=== PATIENT | female | born 1965 | race Caucasian/White ===

== ENCOUNTER 2017-07-31 10:15 | Outpatient (CLI) | payer BC, SELFPAY | END 2017-07-31 10:35 | disposition home or self-care (01) | PROVIDERS: Family Provider Nurse Practitioner Family; PCP Nurse Practitioner Family; Visit Provider Internal Medicine | DX: Z45.2 Encounter for adjustment and management of vascular access device (principal) | CPT/HCPCS: 96523; J1642 ==

== ENCOUNTER 2017-09-01 09:09 | Outpatient (CLI) | payer BC, SELFPAY ==
[2017-09-01 09:15] VITALS: BP 122/74; PULSE 66; RESP 20; TEMP 36.4; O2SAT 97
[2017-09-01 09:20] VITALS: BP 122/78; PULSE 68; RESP 20; TEMP 36.4; O2SAT 96
== END 2017-09-01 09:30 | disposition home or self-care (01) ==
LOC: INF 09:09
PROVIDERS: Family Provider Nurse Practitioner Family; PCP Nurse Practitioner Family; Visit Provider Internal Medicine
DX: Z45.2 Encounter for adjustment and management of vascular access device (principal)
CPT/HCPCS: 96523; J1642

== ENCOUNTER 2017-10-06 08:33 | Outpatient (CLI) | payer BC, SELFPAY | END 2017-10-06 08:51 | disposition home or self-care (01) | LOC: INF 08:33 | PROVIDERS: Family Provider Nurse Practitioner Family; PCP Nurse Practitioner Family; Visit Provider Internal Medicine | DX: Z45.2 Encounter for adjustment and management of vascular access device (principal) | CPT/HCPCS: 96523; J1642 ==

== ENCOUNTER 2017-11-13 08:31 | Outpatient (CLI) | payer BC, SELFPAY ==
[2017-11-13 08:10] VITALS: BP 120/74; BP 122/70; PULSE 66; PULSE 68; RESP 20; TEMP 36.9; O2SAT 96
[2017-11-13 08:17] VITALS: BMI 26.6
--- NOTE | 2017-11-13 08:37 | CT_ITS ---
CT abdomen pelvis w con Ordering Physician: Krystin Myers Patient Age: 52 years: Female HISTORY: Colon cancer. Six-month follow-up. TECHNIQUE: Helical CT scanning performed the chest and subsequently abdomen following 75 cc Isovue-370 and enteric contrast as well. Axial sagittal and coronal reconstructions performed on CT workstation. 10 minute delayed imaging performed the abdomen also performed All CT scans at this facility used one or more dose reduction techniques , viz: automatic exposure control, ma/Kv adjustment per patient's size, (including targeted exam where dose matched to the indication; i.e. head); or iterative reconstruction technique COMPARISON :05/14/2017 CT abdomen pelvis & 02/11/2017 FINDINGS Lung bases are clear with no active disease. Heart normal size. Liver. No focal lesions. No metastatic disease evident. Spleen normal size. The gallbladder unremarkable no calcified stones. Moderate caliber common duct. Pancreas unremarkable. Adrenals unremarkable. Kidneys. No urinary tract calculi. Nor obstruction. Left kidney.: Stable Stable small cyst lower pole 4 mm size fluid density benign appearance. Small less than 1 cm cyst posterior mid left kidney Right kidney. Small. Ureters unremarkable. Pelvis. Bladder unremarkable. Hysterectomy. No adnexal masses. GI TRACT appears stable.Reported Left hemicolectomy but with minimal postsurgical changes evident. Currently note Upper normal wall thickness is seen at the junction of proximal sigmoid colon, most likely reflects an area of contraction. This appears normal on previous CT when it was better distended. Terminal ileum, cecum and region of appendix unremarkable. Small bowel unremarkable. No retroperitoneal nor mesenteric nor pelvic nor inguinal adenopathy. Osseous. No osseous lesions evident. Extrarenal pelvis on the right similar to previous studies IMPRESSION: No evidence of metastatic disease. Status post left colectomy of the proximal descending colon reported. Minimal postsurgical changes evident On today's study there is upper normal wall thickness at the proximal sigmoid colon but this most likely reflects an area of contraction. Generous stool distal to this at the rectum
--- NOTE | 2017-11-13 08:37 | CT_ITS ---
CT chest w con Ordering Physician: Krystin Myers Patient Age: 52 years: Female HISTORY: ITS.REASON: COLON CA, PULMONARY NODULES Colon cancer with 6 month follow-up TECHNIQUE: Helical CT scanning performed the chest and subsequently abdomen following 75 cc Isovue-370 and enteric contrast as well. Axial sagittal and coronal reconstructions performed on CT workstation. All CT scans at this facility used one or more dose reduction techniques , viz: automatic exposure control, ma/Kv adjustment per patient's size, (including targeted exam where dose matched to the indication; i.e. head); or iterative reconstruction technique COMPARISON :Previous CT chest 05/14/2017 FINDINGS: There is a right subclavian Mediport catheter present. Noteazygos fissure-a normal variant. Stable flat aortopulmonic lymph node is again notedmeasuring 16 x 11 mm not significant changed. No other enlarged mediastinal or hilar nodes are evident. No obvious thyroid nodules however the superior aspectof the upper poles are not completely imaged There are scattered calcified granulomas, most evident at the right lung. The largest at the RUL measuring 11 mm AP and is densely calcified. Another is seen anterior RUL measuring up to 6 mm size. Densely calcified. No other findings of significance. No suspicious pulmonary nodules are . no convincing evidence of pulmonary metastasis... No effusions or infiltrates. No bony destructive process. IMPRESSION: Stable CT appearance of the chest. No metastatic disease evident.. Stable mildly enlarged aortopulmonic lymph node IMPRESSION:
[2017-11-13 08:38] LABS: Basophils % 0.5 % (0.1-2.0); Eosinophils # 0.4 K/mm3 (0.0-0.4); Eosinophils % 4.6 % (0.1-12.0); Hematocrit 42.1 % (37.0-47.0); Hemoglobin 13.9 g/dL (12.2-16.2); Lymphocytes # 1.9 K/mm3 (0.7-4.5); Lymphocytes % 22.7 K/mm3 (10-50); Mean Corpuscular Hemoglobin 29.2 pg (27.0-31.2); Mean Corpuscular Volume 88.5 fl (81-99); Mean Platelet Volume 8.5 fl (7.4-10.4); Monocytes # 0.5 K/mm3 (0.1-1.0); Monocytes % 6.4 % (1.7-9.3); Neutrophils # 5.4 K/mm3 (1.8-7.8); Neutrophils % 65.7 % (37.0-80.0); Platelet Count 251 K/mm3 (142-424); Red Blood Count 4.76 M/mm3 (4.20-5.40); Red Cell Distribution Width 13.1 % (11.5-17.5); White Blood Count 8.3 K/mm3 (4.8-10.8)
[2017-11-13 08:48] LABS: Alanine Aminotransferase 26 U/L (12-78); Albumin Level 3.5 gm/dL (3.4-5.0); Alkaline Phosphatase 109 U/L (46-116); Aspartate Amino Transferase 20 U/L (15-37); Bilirubin,Total 0.4 mg/dL (0.2-1.0); Blood Urea Nitrogen 12 mg/dL (7-18); Carbon Dioxide 29 mmol/L (21.0-32.0); Chloride 106 mmol/L (98-107); Creatinine Clearance Estimated 106 mL/min (0-300); Creatinine,Serum 0.75 mg/dL (0.55-1.02); Estimated Glomerular Filt Rate 81 ml/min (>60); GFR (African American) 98 ML/MIN (>60); Globulin 3.6 gm/dl (1.3-3.2); Glucose 99 mg/dL (74-106); Sodium 144 mmol/L (136-145); Total Protein,Serum 7.1 gm/dL (6.4-8.2)
--- NOTE | 2017-11-13 09:14 | HMH.ITSHM ---
BISPROLOL ASA XANAX MULTI VIT
[2017-11-14 20:27] LABS: CEA 1.2 ng/mL (0.0-4.7)
== END 2017-11-13 09:10 | disposition home or self-care (01) ==
LOC: INF 08:32
PROVIDERS: Family Provider Nurse Practitioner Family; PCP Nurse Practitioner Family; Visit Provider Nurse Practitioner
DX: C18.9 Malignant neoplasm of colon, unspecified (principal); R91.8 Other nonspecific abnormal finding of lung field
CPT/HCPCS: 71260; 74177; 80053; 82378; 85025; J1642; Q9967

== ENCOUNTER → 2017-12-25 12:43 | Outpatient (CLI) | payer BC, SELFPAY ==
--- NOTE | 2017-12-25 12:51 | US_ITS ---
US thyroid COMPARISON: Ultrasound thyroid 10/09/2016 HISTORY: Follow-up thyroid nodule TECHNIQUE: Artery ultrasound the thyroid FINDINGS: The isthmus of the gland appears normal. The right lobe measures 1.0 x 4.2 x 1.8 cm. Left lobe measures 1.2 x 4.5 x 1.8 cm. There is homogeneous echogenicity of the right lobe. There is a slightly hypoechoic solid nodule mid pole left lobe measuring 0.6, 0.4 x 0.5 cm. This is basically stable and unchanged in size and appearance from the previous exam. There is an isoechoic solid nodule lower pole measuring 0.5 x 0.8 x 0.5 cm and this is basically stable in overall appearance as well from previous exam the third tiny hyperechoic nodule mid pole measuring 0.5 by point to a 0.4 cm. IMPRESSION: Borderline enlarged gland with stable solid nodules left lobe
== END ==
PROVIDERS: Family Provider Nurse Practitioner Family; PCP Nurse Practitioner Family; Visit Provider Otolaryngology
DX: E04.1 Nontoxic single thyroid nodule (principal)
CPT/HCPCS: 76536

== ENCOUNTER 2018-01-11 09:27 | Outpatient (CLI) | payer BC, SELFPAY ==
[2018-01-11 09:32] VITALS: BP 140/70; PULSE 61; RESP 18; TEMP 36.6; O2SAT 97
== END 2018-01-11 10:55 | disposition home or self-care (01) ==
LOC: INF 09:27
PROVIDERS: Family Provider Nurse Practitioner Family; PCP Nurse Practitioner Family; Visit Provider Internal Medicine
DX: Z45.2 Encounter for adjustment and management of vascular access device (principal)
CPT/HCPCS: 96523; J1642

== ENCOUNTER 2018-02-17 09:15 | Outpatient (CLI) | payer MEDICARE, BC, SELFPAY | END 2018-02-17 09:30 | disposition home or self-care (01) | LOC: INF 09:19 | PROVIDERS: Family Provider Nurse Practitioner Family; PCP Nurse Practitioner Family; Visit Provider Internal Medicine | DX: Z45.2 Encounter for adjustment and management of vascular access device (principal); C18.9 Malignant neoplasm of colon, unspecified | CPT/HCPCS: 96523; J1642 ==

== ENCOUNTER 2018-03-11 14:30 | Outpatient (CLI) | payer MEDICARE, BC, SELFPAY ==
[2018-03-11 14:39] VITALS: BMI 29.2
[2018-03-11 15:41] LABS: Free T4 (Free Thyroxine) 0.95 ng/dl (0.76-1.46)
[2018-03-11 15:43] LABS: Thyroid Stimulating Hormone 3.58 uIU/ml (0.358-3.740)
[2018-03-11 16:18] LABS: Calcium 9.4 mg/dL (8.5-10.1)
--- NOTE | 2018-03-11 16:21 | PC.NURSE ---
03/08/18 1510 Pt returned to infusion dept after seeing Dr. Stiles in clinic today. Pt states she is to have more labs drawn. New orders consist of Thyroid antibody and Calcium. Lab states that there is enough blood from blood draw done earlier today and these labs can be ran from available blood.
[2018-03-13 18:09] LABS: Triiodothyronine (T3) Free 3.1 pg/mL (2.0-4.4)
[2018-03-13 18:09] LABS: Thyroid Peroxidase Antibodies 11 IU/mL (0-34)
== END 2018-03-11 15:05 | disposition home or self-care (01) ==
LOC: INF 14:39
PROVIDERS: Internal Medicine; Otolaryngology; Family Provider Nurse Practitioner Family; PCP Nurse Practitioner Family; Visit Provider Nurse Practitioner
DX: E04.1 Nontoxic single thyroid nodule (principal); R06.02 Shortness of breath; R53.83 Other fatigue; Z45.2 Encounter for adjustment and management of vascular access device
CPT/HCPCS: 82310; 84439; 84443; 84481; 84482; 86376; J1642

== ENCOUNTER → 2018-04-08 09:41 | Outpatient (CLI) | payer MEDICARE, BC, SELFPAY ==
--- NOTE | 2018-04-08 10:08 | US_ITS ---
US thyroid HISTORY: ITS.REASON: THYROID NODULE ORDERING PHYSICIAN: Brendan Stiles MD PATIENT AGE: 52 years Comparison: 12/25/2017 and 08/06/2015. FINDINGS: The patient was scheduled for a thyroid FNA of the hypoechoic nodule of the medial aspect of the left lobe of the thyroid gland. This nodule was not able to be biopsied due to its close location to the larynx and the absence of an appropriate acoustical window. Localized lesion was obtained with 1% buffered lidocaine and FNA was attempted but could not be safely performed. The procedure was therefore aborted. This nodule measured 6 x 4 x 5 mm and was not significantly changed compared to an older thyroid ultrasound of 08/06/2015. No complications were evident IMPRESSION: The FNA was not performed due to the location, absent window for biopsy, and the risk of the procedure.
== END ==
PROVIDERS: PCP Nurse Practitioner Family; Visit Provider Otolaryngology
DX: E04.1 Nontoxic single thyroid nodule (principal)
CPT/HCPCS: 76536

== ENCOUNTER → 2018-04-15 10:43 | Outpatient (CLI) | payer MEDICARE, BC, SELFPAY ==
[2018-04-15 11:26] VITALS: PULSE 75
== END ==
PROVIDERS: PCP Nurse Practitioner Family; Visit Provider Internal Medicine
DX: R06.02 Shortness of breath (principal)
CPT/HCPCS: 94060; 94640; 94726; 94729

== ENCOUNTER 2018-04-19 11:07 | Outpatient (CLI) | payer MEDICARE, BC, SELFPAY | END 2018-04-19 11:30 | disposition home or self-care (01) | LOC: INF 11:07 | PROVIDERS: Visit Provider Nurse Practitioner | DX: Z45.2 Encounter for adjustment and management of vascular access device (principal); C18.9 Malignant neoplasm of colon, unspecified | CPT/HCPCS: 96523; J1642 ==

== ENCOUNTER 2018-05-20 08:06 | Outpatient (CLI) | payer BC, SELFPAY ==
--- NOTE | 2018-05-20 08:09 | CT_ITS ---
CT chest w con HISTORY: Follow-up colon cancer ITS.REASON: COLON CANCER ORDERING PHYSICIAN: Krystin Myers PATIENT AGE: 52 years COMPARISON: 11/13/2017 TECHNIQUE: Axial images obtained following the administration of 75 mL of Isovue 370 . Sagittal, and coronal reformatted images are also generated and reviewed. All CT scans at the facility use one or more dose reduction, viz: automated exposure control, ma/kV adjustment per patient size (including targeted exams where dose is matched to indication, i.e. head), or iterative reconstruction technique. FINDINGS: No mediastinal or hilar mass or adenopathy.. No evidence of aortic aneurysm or dissection. No evidence of pulmonary embolus. Normal heart size without evidence of pericardial effusion. There is evidence of old granulomatous disease with scattered calcified granulomas as previously described. Atelectatic changes are present in the right middle lobe medially and slightly increased compared to the previous exam. There are mild atelectatic changes also present in the medial aspect of the lingula. No suspicious pulmonary nodules are apparent. No effusions. No acute bony anomalies. There is a right subclavian Mediport catheter present with the tip in the region of the SVC. IMPRESSION: 1. No convincing evidence of metastatic disease 2. New atelectatic changes in the right middle lobe and lingula. 3. Old granulomatous disease.
--- NOTE | 2018-05-20 08:09 | CT_ITS ---
CT abdomen pelvis w con CLINICAL INDICATION: Follow-up colon cancer ITS.REASON: COLON CANCER ORDERING PHYSICIAN: Krystin Myers PATIENT AGE: 52 years COMPARISON: 11/13/2017 TECHNIQUE: Axial images obtained with sagittal and coronal reformats. All CT scans at the facility use one or more dose reduction, viz: automated exposure control, ma/kV adjustment per patient size (including targeted exams where dose is matched to indication, i.e. head), or iterative reconstruction technique. PROCEDURE: Oral Contrast: Redicat IV Contrast: 75 mL of Isovue-370. FINDINGS: The liver, spleen, adrenal glands, pancreas, and gallbladder have an unremarkable appearance. No ureteral or ureteral calculi. There is a small cyst projecting off the lower pole of the left kidney medially at 11 mm. 7 mm subcortical cyst noted posteriorly on the left. No retroperitoneal adenopathy. There are a few small lymph nodes in the retroperitoneum unchanged measuring up to 6 mm in short axis. Prior hysterectomy. No evidence of diverticulitis or appendicitis. Postsurgical changes of the colon in the left flexure region. No bony destructive process. No lytic or blastic change. IMPRESSION: 1. Overall stable CT appearance of the abdomen and pelvis with no convincing evidence of metastatic disease 2. Prior partial colectomy in the splenic flexure unchanged
[2018-05-20 08:35] VITALS: BMI 28.1
[2018-05-20 09:04] LABS: Basophils # 0.1 K/mm3 (0-0.2); Basophils % 0.7 % (0.1-2.0); Eosinophils # 0.3 K/mm3 (0.0-0.4); Eosinophils % 3.3 % (0.1-12.0); Hematocrit 41.6 % (37.0-47.0); Hemoglobin 14.2 g/dL (12.2-16.2); Lymphocytes # 1.7 K/mm3 (0.7-4.5); Lymphocytes % 19.9 % (10-50); Mean Corpuscular Hemoglobin 30.7 pg (27.0-31.2); Mean Corpuscular Volume 90.1 fl (81-99); Monocytes # 0.4 K/mm3 (0.1-1.0); Monocytes % 5.1 % (1.7-9.3); Neutrophils % 70.9 % (37.0-80.0); Platelet Count 239 K/mm3 (142-424); Red Blood Count 4.62 M/mm3 (4.20-5.40); Red Cell Distribution Width 13.6 % (11.5-17.5); White Blood Count 8.4 K/mm3 (4.8-10.8)
[2018-05-20 09:18] LABS: Alanine Aminotransferase 27 U/L (12-78); Albumin Level 3.6 gm/dL (3.4-5.0); Anion Gap 12.8 mEq/L (5-15); Aspartate Amino Transferase 8 U/L (15-37); Bilirubin,Total 0.3 mg/dL (0.2-1.0); Blood Urea Nitrogen 13 mg/dL (7-18); Calcium 8.9 mg/dL (8.5-10.1); Carbon Dioxide 29 mmol/L (21.0-32.0); Chloride 104 mmol/L (98-107); Creatinine Clearance Estimated 102 mL/min (50-200); Creatinine,Serum 0.82 mg/dL (0.55-1.02); Estimated Glomerular Filt Rate 73 ml/min (>60); GFR (African American) 88 ML/MIN (>60); Globulin 3.5 gm/dl (1.3-3.2); Glucose 112 mg/dL (74-106); Potassium 3.8 mmoL/L (3.5-5.1); Sodium 142 mmol/L (136-145); Total Protein,Serum 7.1 gm/dL (6.4-8.2)
[2018-05-20 09:30] LABS: Alkaline Phosphatase 87 U/L (46-116)
--- NOTE | 2018-05-20 10:17 | PC.NURSE ---
05/20/18 @ 1000-injected pt's pac with cath katie 2mg iv. will reevaluate return in 30 min.
== END 2018-05-20 11:00 | disposition home or self-care (01) ==
PROVIDERS: PCP Nurse Practitioner Family; Visit Provider Nurse Practitioner
DX: C18.9 Malignant neoplasm of colon, unspecified (principal); C78.7 Secondary malignant neoplasm of liver and intrahepatic bile duct
CPT/HCPCS: 71260; 74177; 80053; 85025; 96374; J1642; Q9967

== ENCOUNTER 2018-06-17 10:48 | Outpatient (CLI) | payer BC, SELFPAY | END 2018-06-17 11:10 | disposition home or self-care (01) | LOC: INF 10:48 | PROVIDERS: Visit Provider Nurse Practitioner | DX: Z45.2 Encounter for adjustment and management of vascular access device (principal); C18.9 Malignant neoplasm of colon, unspecified | CPT/HCPCS: 96523; J1642 ==

== ENCOUNTER 2018-08-02 12:42 | Outpatient (CLI) | payer BC, SELFPAY | END 2018-08-02 13:00 | disposition home or self-care (01) | LOC: INF 12:42 | PROVIDERS: Visit Provider Internal Medicine Medical Oncology | DX: Z45.2 Encounter for adjustment and management of vascular access device (principal); C18.9 Malignant neoplasm of colon, unspecified | CPT/HCPCS: 96523; J1642 ==

== ENCOUNTER 2018-09-01 08:00 | Outpatient (CLI) | payer BC, SELFPAY ==
[2018-09-01 08:12] VITALS: BMI 28.2
[2018-09-01 08:38] LABS: Basophils # 0.1 K/mm3 (0-0.2); Basophils % 0.5 % (0.1-2.0); Eosinophils # 0.3 K/mm3 (0.0-0.4); Eosinophils % 3.6 % (0.1-12.0); Hemoglobin 14.2 g/dL (12.2-16.2); Lymphocytes # 1.8 K/mm3 (0.7-4.5); Lymphocytes % 19.5 % (10-50); Mean Corpuscular HGB Conc 34.6 g/dL (31.8-35.4); Mean Corpuscular Hemoglobin 31.2 pg (27.0-31.2); Mean Platelet Volume 8.5 fl (7.4-10.4); Monocytes # 0.5 K/mm3 (0.1-1.0); Monocytes % 5.2 % (1.7-9.3); Neutrophils # 6.5 K/mm3 (1.8-7.8); Neutrophils % 71.2 % (37.0-80.0); Platelet Count 253 K/mm3 (142-424); Red Blood Count 4.55 M/mm3 (4.20-5.40); Red Cell Distribution Width 13.8 % (11.5-17.5); White Blood Count 9.1 K/mm3 (4.8-10.8)
[2018-09-01 08:48] LABS: Alanine Aminotransferase 25 U/L (12-78); Albumin Level 3.7 gm/dL (3.4-5.0); Albumin/Globulin Ratio 1.1 (1.1-1.8); Alkaline Phosphatase 91 U/L (46-116); Anion Gap 12.7 mEq/L (5-15); Aspartate Amino Transferase 15 U/L (15-37); Bilirubin,Total 0.3 mg/dL (0.2-1.0); Blood Urea Nitrogen 10 mg/dL (7-18); Calcium 8.9 mg/dL (8.5-10.1); Carbon Dioxide 27 mmol/L (21.0-32.0); Chloride 106 mmol/L (98-107); Creatinine Clearance Estimated 112 mL/min (50-200); Creatinine,Serum 0.75 mg/dL (0.55-1.02); Estimated Glomerular Filt Rate 81 ml/min (>60); GFR (African American) 98 ML/MIN (>60); Globulin 3.5 gm/dl (1.3-3.2); Glucose 102 mg/dL (74-106); Potassium 3.7 mmoL/L (3.5-5.1); Sodium 142 mmol/L (136-145); Total Protein,Serum 7.2 gm/dL (6.4-8.2)
== END 2018-09-01 08:30 | disposition home or self-care (01) ==
LOC: INF 08:10
PROVIDERS: Visit Provider Internal Medicine Medical Oncology
DX: Z45.2 Encounter for adjustment and management of vascular access device (principal); C18.9 Malignant neoplasm of colon, unspecified
CPT/HCPCS: 80053; 82378; 85025; J1642

== ENCOUNTER → 2018-10-11 12:55 | Outpatient (CLI) | payer BC, SELFPAY ==
--- NOTE | 2018-10-11 12:58 | US_ITS ---
US thyroid HISTORY: ITS.REASON: Thyroid nodule ORDERING PHYSICIAN: Brendan Stiles MD PATIENT AGE: 52 years Comparison: 12/25/2017 FINDINGS: The isthmus is slightly thickened at 5 mm. The right lobe is 4.4 x 1.2 x 1.6 cm with homogeneous echogenicity. The left lobe is 4.4 x 1.4 x 1.6 cm. There is homogeneous echogenicity. A stable 6 x 4 mm isoechoic nodule is present in the upper pole similar to the previous exam of 12/25/2017. A slightly hypoechoic nodule present in the lower pole at 7 x 4 mm unchanged. IMPRESSION: No change in the 2 left-sided thyroid nodules which are less than 1 cm. No new nodules evident.
== END ==
PROVIDERS: PCP Nurse Practitioner Family; Visit Provider Otolaryngology
DX: E04.1 Nontoxic single thyroid nodule (principal)
CPT/HCPCS: 76536

== ENCOUNTER 2018-11-24 08:47 | Outpatient (CLI) | payer BC, SELFPAY ==
[2018-11-24 08:31] VITALS: BMI 29.0
--- NOTE | 2018-11-24 08:49 | CT_ITS ---
CT abdomen pelvis w con CLINICAL INDICATION: Metastatic colon cancer ITS.REASON: colon cancer ORDERING PHYSICIAN: Krystin Myers APRN PATIENT AGE: 53 years COMPARISON: 05/20/2018 TECHNIQUE: Contrast Used:75ml Optiray 350 Oral Contrast: None Axial images obtained with sagittal and coronal reformats. All CT scans at the facility use one or more dose reduction, viz: automated exposure control, ma/kV adjustment per patient size (including targeted exams where dose is matched to indication, i.e. head), or iterative reconstruction technique. FINDINGS: The liver, spleen, adrenal glands, pancreas, gallbladder, and kidneys have an unremarkable appearance. No convincing evidence of hepatic metastasis. There are 3 small cysts of the left kidney. No intestinal obstruction or free air. Postsurgical changes in the splenic flexure region of the colon. There are few small ridge. No lymph nodes which are unchanged. No evidence of appendicitis or diverticulitis. There is long segment narrowing of the sigmoid colon which may only be due to nondistention.. No mucosal thickening evident at this region. A stricture is also a consideration as this had a somewhat similar appearance on the previous study. Colonoscopy or barium in amount may be of further value. Prior hysterectomy. No acute bony anomalies evident. There is a sclerotic lesion in the right femoral neck inferiorly may be due to bone island.. IMPRESSION: 1. Overall stable CT appearance of the abdomen with no convincing evidence of metastatic disease. 2. Long segment narrowing of the sigmoid colon at the rectosigmoid region. This may ultimately be due to nondistention. One cannot exclude possibility of a stricture. Colonoscopy or barium enema may be of further value.
--- NOTE | 2018-11-24 08:49 | CT_ITS ---
CT chest w con HISTORY: Colon cancer with metastatic disease ITS.REASON: colon cancer ORDERING PHYSICIAN: Krystin Myers APRN PATIENT AGE: 53 years COMPARISON: 05/20/2018 Technique: Contrast Used:75ml Optiray 350 Axial images were obtained. Sagittal, and coronal reformatted images are also generated and reviewed. All CT scans at the facility use one or more dose reduction, viz: automated exposure control, ma/kV adjustment per patient size (including targeted exams where dose is matched to indication, i.e. head), or iterative reconstruction technique. FINDINGS: No mediastinal or hilar mass or adenopathy. There is an azygos fissure is a normal variant. Calcified nodule is present in the right upper lobe posteriorly and in the right middle lobe. No suspicious pulmonary nodules are evident. No effusions or infiltrates. No acute bony anomalies. There is Mediport catheter present by the right subclavian approach the tip in the region of the superior vena cava. Mild atelectatic or fibrotic changes once again noted in the right middle lobe and lingula. IMPRESSION: 1. No change with no acute finding. 2. No convincing evidence of metastatic disease.
[2018-11-24 08:57] LABS: Blood Urea Nitrogen 10 mg/dL (7-18); Creatinine Clearance Estimated 109 mL/min (50-200); Creatinine,Serum 0.76 mg/dL (0.55-1.02); Estimated Glomerular Filt Rate 79 ml/min (>60); GFR (African American) 96 ML/MIN (>60)
--- NOTE | 2018-11-24 09:19 | HMH.ITSHM ---
Current Home Medications as stated by this patient Denisa Pereira or client services representative. []BISOPROLOL,MONIXIL,LASIX,ALDACTONE,ASA.TRAZADONE,XANAX
== END 2018-11-24 09:15 | disposition home or self-care (01) ==
LOC: INF 08:48
PROVIDERS: PCP Nurse Practitioner Family; Visit Provider Nurse Practitioner
DX: C18.9 Malignant neoplasm of colon, unspecified (principal); C78.7 Secondary malignant neoplasm of liver and intrahepatic bile duct
CPT/HCPCS: 71260; 74177; 82565; 84520; J1642; Q9967

== ENCOUNTER 2018-12-29 08:57 | Outpatient (CLI) | payer BC, SELFPAY ==
[2018-12-29 08:59] VITALS: BMI 28.1
[2018-12-29 09:28] LABS: Basophils % 0.5 % (0.1-2.0); Eosinophils # 0.2 K/mm3 (0.0-0.4); Eosinophils % 2.2 % (0.1-12.0); Hematocrit 39.3 % (37.0-47.0); Hemoglobin 13.3 g/dL (12.2-16.2); Lymphocytes # 1.8 K/mm3 (0.7-4.5); Lymphocytes % 22.5 % (10-50); Mean Corpuscular HGB Conc 33.8 g/dL (31.8-35.4); Mean Corpuscular Hemoglobin 29.4 pg (27.0-31.2); Mean Corpuscular Volume 87.1 fl (81-99); Mean Platelet Volume 8.9 fl (7.4-10.4); Monocytes # 0.5 K/mm3 (0.1-1.0); Monocytes % 5.6 % (1.7-9.3); Neutrophils # 5.6 K/mm3 (1.8-7.8); Neutrophils % 69.2 % (37.0-80.0); Platelet Count 227 K/mm3 (142-424); Red Blood Count 4.51 M/mm3 (4.20-5.40); Red Cell Distribution Width 13.6 % (11.5-17.5); White Blood Count 8.1 K/mm3 (4.8-10.8)
[2018-12-29 09:55] LABS: Alanine Aminotransferase 28 U/L (12-78); Albumin Level 3.6 gm/dL (3.4-5.0); Alkaline Phosphatase 85 U/L (46-116); Anion Gap 12.6 mEq/L (5-15); Aspartate Amino Transferase 11 U/L (15-37); Bilirubin,Total 0.5 mg/dL (0.2-1.0); Blood Urea Nitrogen 10 mg/dL (7-18); Carbon Dioxide 28 mmol/L (21.0-32.0); Chloride 103 mmol/L (98-107); Creatinine Clearance Estimated 95 mL/min (50-200); Creatinine,Serum 0.87 mg/dL (0.55-1.02); Estimated Glomerular Filt Rate 68 ml/min (>60); GFR (African American) 82 ML/MIN (>60); Globulin 3.6 gm/dl (1.3-3.2); Glucose 116 mg/dL (74-106); Potassium 3.6 mmoL/L (3.5-5.1); Sodium 140 mmol/L (136-145); Thyroid Stimulating Hormone 2.27 uIU/ml (0.358-3.740); Total Protein,Serum 7.2 gm/dL (6.4-8.2)
[2018-12-30 08:23] LABS: CEA 0.9 ng/mL (0.0-4.7)
== END 2018-12-29 09:20 | disposition home or self-care (01) ==
LOC: INF 08:57
PROVIDERS: Visit Provider Nurse Practitioner
DX: C18.9 Malignant neoplasm of colon, unspecified (principal); R53.83 Other fatigue; F41.9 Anxiety disorder, unspecified; E04.1 Nontoxic single thyroid nodule
CPT/HCPCS: 80053; 82378; 84443; 85025; J1642

== ENCOUNTER 2019-05-09 08:58 | Outpatient (CLI) | payer SELFPAY | END 2019-05-09 09:10 | disposition home or self-care (01) | LOC: INF 08:58 | PROVIDERS: Visit Provider Nurse Practitioner | DX: Z45.2 Encounter for adjustment and management of vascular access device (principal); C18.9 Malignant neoplasm of colon, unspecified; E04.1 Nontoxic single thyroid nodule; R53.83 Other fatigue | CPT/HCPCS: 96523; J1642 ==

== ENCOUNTER 2019-06-29 07:59 | Outpatient (CLI) | payer OTHER, SELFPAY ==
[2019-06-29 08:12] VITALS: BMI 27.4
--- NOTE | 2019-06-29 08:33 | CT_ITS ---
PROCEDURE: CT CHEST W CON CLINCAL INDICATION: STAGE IV COLON CA,LIVER METASTASIS COMPARISON: CHESTW CT chest w con from 11/24/2018 CT ABDOMEN PELVIS W CON from 06/29/2019 TECHNIQUE: IV Contrast: 75ml Optiray 350 Axial images obtained with sagittal and coronal reformats. All CT scans at the facility use one or more dose reduction, viz: automated exposure control, ma/kV adjustment per patient size (including targeted exams where dose is matched to indication, i.e. head), or iterative reconstruction technique. FINDINGS: HEART,AORTA,PULMONARY ARTERIES Unremarkable. MEDIASTINAL AND HILAR STRUCTURES: No mediastinal or hilar mass evident. No dominant adenopathy. LUNGS: A calcified granuloma is seen in the right lung base. No mass or consolidation. PLEURAL SPACES: No significant effusion. No evidence of pneumothorax. BONY STRUCTURES: No acute bony abnormalities apparent. LYMPH NODES: No enlarged lymph nodes evident. UPPER ABDOMEN: There is fatty infiltration of the liver. Otherwise, unremarkable. ADDITIONAL FINDINGS: Right subclavian approach MediPort catheter is noted with the distal tip obscured by contrast at least within the distal SVC. IMPRESSION: Stable appearance of the chest. No acute cardiopulmonary pathology or finding suspicious for metastatic disease. Dictated by: Morris Tsang 06/29/2019 10:07 Electronically signed by Morris Tsang in [facility] 06/29/2019 10:07
--- NOTE | 2019-06-29 08:33 | CT_ITS ---
PROCEDURE: CT ABDOMEN PELVIS W CON CLINICAL INDICATION: STAGE IV COLON CA,LIVER METASTASIS COMPARISON: ABDPELW CT abdomen pelvis w con from 11/24/2018 TECHNIQUE: IV Contrast: 75ML OPTIRAY 350 Oral Contrast 20ml Gastroview Axial images obtained with sagittal and coronal reformats. All CT scans at the facility use one or more dose reduction, viz: automated exposure control, ma/kV adjustment per patient size (including targeted exams where dose is matched to indication, i.e. head), or iterative reconstruction technique. FINDINGS: LOWER THORAX: No acute finding ABDOMEN & PELVIS: There is mild diffuse fatty infiltration of the liver. There are no liver lesions. Small cortical cysts unchanged of the left kidney are noted. The liver, spleen, pancreas, adrenal glands, and kidneys show no acute finding. No intestinal obstruction or free air. No evidence of appendicitis or diverticulitis. No pelvic mass, abnormal fluid collection, or focal inflammatory change of the pelvis. No acute bony anomalies. IMPRESSION: No acute intra-abdominal/pelvic pathology. No evidence of metastatic disease. Dictated by: Morris Tsang 06/29/2019 10:18 Electronically signed by Morris Tsang in [facility] 06/29/2019 10:18
[2019-06-29 08:39] LABS: Basophils # 0.1 K/mm3 (0-0.2); Basophils % 0.6 % (0.1-2.0); Eosinophils # 0.3 K/mm3 (0.0-0.4); Eosinophils % 3.8 % (0.1-12.0); Hematocrit 41.2 % (37.0-47.0); Hemoglobin 14.2 g/dL (12.2-16.2); Lymphocytes # 1.9 K/mm3 (0.7-4.5); Lymphocytes % 25.1 % (10-50); Mean Corpuscular HGB Conc 34.4 g/dL (31.8-35.4); Mean Corpuscular Hemoglobin 30.8 pg (27.0-31.2); Mean Corpuscular Volume 89.5 fl (81-99); Mean Platelet Volume 8.9 fl (7.4-10.4); Monocytes # 0.4 K/mm3 (0.1-1.0); Monocytes % 4.9 % (1.7-9.3); Neutrophils # 5.1 K/mm3 (1.8-7.8); Neutrophils % 65.6 % (37.0-80.0); Platelet Count 236 K/mm3 (142-424); Red Blood Count 4.61 M/mm3 (4.20-5.40); White Blood Count 7.7 K/mm3 (4.8-10.8)
[2019-06-29 08:46] LABS: Alanine Aminotransferase 22 U/L (12-78); Albumin Level 3.6 gm/dL (3.4-5.0); Albumin/Globulin Ratio 1.1 (1.1-1.8); Alkaline Phosphatase 85 U/L (46-116); Aspartate Amino Transferase 18 U/L (15-37); Bilirubin,Total 0.3 mg/dL (0.2-1.0); Blood Urea Nitrogen 12 mg/dL (7-18); Carbon Dioxide 29 mmol/L (21.0-32.0); Chloride 106 mmol/L (98-107); Creatinine Clearance Estimated 87 mL/min (50-200); Estimated Glomerular Filt Rate 65 ml/min (>60); GFR (African American) 79 ML/MIN (>60); Globulin 3.3 gm/dl (1.3-3.2); Glucose 105 mg/dL (74-106); Sodium 143 mmol/L (136-145); Total Protein,Serum 6.9 gm/dL (6.4-8.2)
[2019-06-30 12:35] LABS: CEA 0.8 ng/mL (0.0-4.7)
== END 2019-06-29 09:28 | disposition home or self-care (01) ==
PROVIDERS: Internal Medicine Medical Oncology; PCP Nurse Practitioner Family; Visit Provider Nurse Practitioner
DX: C18.9 Malignant neoplasm of colon, unspecified (principal); C78.7 Secondary malignant neoplasm of liver and intrahepatic bile duct
CPT/HCPCS: 71260; 74177; 80053; 82378; 85025; J1642; Q9967

== ENCOUNTER 2019-09-28 08:09 | Outpatient (CLI) | payer OTHER, SELFPAY | END 2019-09-28 08:15 | disposition home or self-care (01) | LOC: INF 08:09 | PROVIDERS: Visit Provider Internal Medicine Medical Oncology | DX: Z45.2 Encounter for adjustment and management of vascular access device (principal) | CPT/HCPCS: 96523; J1642 ==

== ENCOUNTER 2019-11-28 10:25 | Outpatient (CLI) | payer OTHER, SELFPAY ==
[2019-11-28 10:27] VITALS: BMI 27.4
--- NOTE | 2019-11-28 10:51 | US_ITS ---
PROCEDURE: US THYROID CLINICAL INDICATION: Thyroid nodules COMPARISON: 10/11/2018 FINDINGS: Both thyroid glands are normal size and echogenicity. The right thyroid gland measures 13 millimeters x 39 millimeters x 15 millimeters. There is a new benign appearing mixed cystic and solid lesion in the interpolar region of the right thyroid gland measuring 2.5 millimeters x 1.4 millimeters x 2.6 millimeters.. There is a new 2.2 millimeter x 3 millimeter x 1.7 millimeter cystic lesion in the upper pole. The left thyroid gland measures 11 millimeters x 42 millimeters x 18 millimeters. There is a complex solid lesion in the upper pole of the left thyroid gland measuring 6 millimeters x 8 millimeters x 7 millimeters. This lesion formally measured is 6 millimeters X 4 millimeters. Within the lower lobe of the left thyroid gland there is a 6 millimeter x 8 millimeter x 4 millimeter solid lesion. Formally this lesion measured 7 mm x 4 millimeters. The isthmus measures 3.4 millimeter IMPRESSION: Multiple bilateral TR 2 lesions as above. Follow up thyroid ultrasound in 6 months recommended. Dictated by: Eric Arroyo 11/28/2019 12:12 Electronically signed by Eric Arroyo in [facility] 11/28/2019 12:12
[2019-11-28 11:41] LABS: Free T4 (Free Thyroxine) 0.97 ng/dl (0.78-2.19)
== END 2019-11-28 10:55 | disposition home or self-care (01) ==
LOC: INF 10:25
PROVIDERS: Visit Provider Otolaryngology
DX: E04.1 Nontoxic single thyroid nodule (principal); E04.9 Nontoxic goiter, unspecified; Z45.2 Encounter for adjustment and management of vascular access device
CPT/HCPCS: 76536; 84439; 84443; J1642

== ENCOUNTER 2019-12-09 09:57 | Outpatient (CLI) | payer OTHER, SELFPAY ==
[2019-12-09 09:41] VITALS: BMI 26.6
--- NOTE | 2019-12-09 10:01 | CT_ITS ---
PROCEDURE: CT ABDOMEN PELVIS W CON CLINICAL INDICATION: COLON CA Follow-up colon cancer COMPARISON: CT ABDOMEN PELVIS W CON from 06/29/2019 TECHNIQUE: IV Contrast: 75ML OPTIRAY 350 Oral Contrast None Axial images obtained with sagittal and coronal reformats. All CT scans at the facility use one or more dose reduction, viz: automated exposure control, ma/kV adjustment per patient size (including targeted exams where dose is matched to indication, i.e. head), or iterative reconstruction technique. FINDINGS: LOWER THORAX: No acute finding ABDOMEN & PELVIS: The liver, spleen, pancreas, adrenal glands have an unremarkable appearance. Small cyst projects off the lower pole of the left kidney. No renal or ureteral calculi. No hydronephrosis. No retroperitoneal or intra-abdominal adenopathy. There are few small retroperitoneal lymph nodes not significantly changed. No intestinal obstruction or free air. No evidence of appendicitis or diverticulitis. There are post hysterectomy changes Small sclerotic focus involves the intertrochanteric region of the right femur and may be due to a bone island. No acute bony findings. IMPRESSION: No change with no acute finding. No evidence of metastatic disease. Dictated by: Ulises Castro MD 12/10/2019 10:43 Electronically signed by Ulises Csatro MD in [facility] 12/10/2019 10:45
--- NOTE | 2019-12-09 10:02 | CT_ITS ---
PROCEDURE: CT CHEST W CON CLINCAL INDICATION: COLON CA Follow-up colon cancer COMPARISON: CT CHEST W CON from 06/29/2019 CT ABDOMEN PELVIS W CON from 12/09/2019 TECHNIQUE: IV Contrast: 75ml Optiray 350 Axial images obtained with sagittal and coronal reformats. All CT scans at the facility use one or more dose reduction, viz: automated exposure control, ma/kV adjustment per patient size (including targeted exams where dose is matched to indication, i.e. head), or iterative reconstruction technique. FINDINGS: HEART AND MEDIASTINAL STRUCTURES: MediPort catheter is present from right subclavian approach. No mediastinal or hilar adenopathy. LUNGS AND PLEURAL SPACES: Calcified granuloma right upper lobe. Azygos fissure is present as a normal variant BONY STRUCTURES: No acute bony abnormalities apparent. UPPER ABDOMEN: See abdomen report ADDITIONAL FINDINGS: No other significant abnormalities. IMPRESSION: Stable CT appearance of the chest. No convincing evidence of metastatic disease Dictated by: Ulises Castro MD 12/10/2019 10:25 Electronically signed by Ulises Castro MD in [facility] 12/10/2019 10:25
[2019-12-09 10:03] LABS: Basophils # 0.1 K/mm3 (0-0.2); Basophils % 0.7 % (0.1-2.0); Eosinophils # 0.4 K/mm3 (0.0-0.4); Hematocrit 39.6 % (37.0-47.0); Hemoglobin 14.3 g/dL (12.2-16.2); Lymphocytes # 2.1 K/mm3 (0.7-4.5); Lymphocytes % 24.2 % (10-50); Mean Corpuscular HGB Conc 36.2 g/dL (31.8-35.4); Mean Corpuscular Hemoglobin 31.7 pg (27.0-31.2); Mean Corpuscular Volume 87.7 fl (81-99); Mean Platelet Volume 8.9 fl (7.4-10.4); Monocytes # 0.4 K/mm3 (0.1-1.0); Neutrophils # 5.7 K/mm3 (1.8-7.8); Neutrophils % 66.1 % (37.0-80.0); Platelet Count 246 K/mm3 (142-424); Red Blood Count 4.52 M/mm3 (4.20-5.40); Red Cell Distribution Width 13.3 % (11.5-17.5); White Blood Count 8.6 K/mm3 (4.8-10.8)
[2019-12-09 10:15] LABS: Alanine Aminotransferase 22 U/L (12-78); Albumin Level 4.6 g/dl (3.5-5.0); Albumin/Globulin Ratio 1.5 (1.1-1.8); Alkaline Phosphatase 95 U/L (38-126); Anion Gap 11.1 mEq/L (5-15); Aspartate Amino Transferase 28 U/L (14-36); Bilirubin,Total 0.5 mg/dl (0.2-1.3); Blood Urea Nitrogen 11 mg/dl (7-17); Calcium 9.6 mg/dl (8.4-10.2); Carbon Dioxide 32 mmol/L (22.0-30.0); Chloride 99 mmol/L (98-107); Creatinine Clearance Estimated 111 mL/min (50-200); Estimated Glomerular Filt Rate 87 ml/min (>60); GFR (African American) 105 ML/MIN (>60); Globulin 3.1 g/dL (1.3-3.2); Glucose 104 mg/dl (74-100); Potassium 4.1 mmoL/L (3.5-5.1); Sodium 138 mmol/L (136-145); Total Protein,Serum 7.7 g/dl (6.3-8.2)
== END 2019-12-09 10:55 | disposition home or self-care (01) ==
LOC: RAD 09:59
PROVIDERS: PCP Nurse Practitioner Family; Visit Provider Internal Medicine Medical Oncology
DX: C18.9 Malignant neoplasm of colon, unspecified (principal)
CPT/HCPCS: 71260; 74177; 80053; 82378; 85025; J1642; Q9967

== ENCOUNTER 2020-01-11 08:49 | Outpatient (CLI) | payer OTHER, SELFPAY | END 2020-01-11 09:00 | disposition home or self-care (01) | LOC: INF 08:49 | PROVIDERS: Visit Provider Internal Medicine Medical Oncology | DX: C18.9 Malignant neoplasm of colon, unspecified (principal) | CPT/HCPCS: 96523; J1642 ==

== ENCOUNTER 2020-02-08 08:42 | Outpatient (CLI) | payer OTHER, SELFPAY | END 2020-02-08 08:55 | disposition home or self-care (01) | LOC: INF 08:42 | PROVIDERS: Visit Provider Internal Medicine Medical Oncology | DX: Z45.2 Encounter for adjustment and management of vascular access device (principal) | CPT/HCPCS: 96523; J1642 ==

== ENCOUNTER 2020-03-06 08:24 | Outpatient (CLI) | payer OTHER, SELFPAY | END 2020-03-06 08:31 | disposition home or self-care (01) | LOC: INF 08:24 | PROVIDERS: Visit Provider Internal Medicine Medical Oncology | DX: Z45.2 Encounter for adjustment and management of vascular access device (principal) | CPT/HCPCS: 96523; J1642 ==

== ENCOUNTER 2020-04-04 08:15 | Outpatient (CLI) | payer OTHER, BC, SELFPAY | END 2020-04-04 08:31 | disposition home or self-care (01) | LOC: INF 08:15 | PROVIDERS: Visit Provider Internal Medicine Medical Oncology | DX: Z45.2 Encounter for adjustment and management of vascular access device (principal) | CPT/HCPCS: 96523; J1642 ==

== ENCOUNTER 2020-05-02 08:00 | Outpatient (CLI) | payer OTHER, SELFPAY | END 2020-05-02 08:30 | disposition home or self-care (01) | LOC: INF 08:09 | PROVIDERS: Visit Provider Internal Medicine Medical Oncology | DX: Z45.2 Encounter for adjustment and management of vascular access device (principal) | CPT/HCPCS: 96523; J1642 ==

== ENCOUNTER 2020-05-21 08:23 | Outpatient (CLI) | payer OTHER, SELFPAY ==
--- NOTE | 2020-05-21 | CT_ITS ---
PROCEDURE: CT ABDOMEN PELVIS W CON CLINICAL INDICATION: follow up colon ca COMPARISON: CT CT ABDOMEN PELVIS W CON from 12/09/2019 TECHNIQUE: IV Contrast: 75ML Isovue 370 Oral Contrast None Axial images obtained with sagittal and coronal reformats. All CT scans at the facility use one or more dose reduction, viz: automated exposure control, ma/kV adjustment per patient size (including targeted exams where dose is matched to indication, i.e. head), or iterative reconstruction technique. FINDINGS: There is mild fatty liver. No focal liver lesions are identified. The adrenal glands, spleen, and pancreas have an unremarkable appearance. No acute finding of the kidneys. No retroperitoneal adenopathy. No intestinal obstruction or free air. No evidence of appendicitis or diverticulitis. Post hysterectomy changes. No acute bony findings. IMPRESSION: No change with no evidence metastatic disease. Dictated by: Ulises Castro MD 05/22/2020 05:54 Ulises Castro MD in [facility] 05/22/2020 05:54
--- NOTE | 2020-05-21 | CT_ITS ---
PROCEDURE: CT CHEST W CON CLINCAL INDICATION: Follow up colon cancer Evaluate for metastatic disease COMPARISON: CT CT CHEST W CON from 12/09/2019 TECHNIQUE: IV Contrast: 75ml Isovue 370 Axial images obtained with sagittal and coronal reformats. All CT scans at the facility use one or more dose reduction, viz: automated exposure control, ma/kV adjustment per patient size (including targeted exams where dose is matched to indication, i.e. head), or iterative reconstruction technique. FINDINGS: HEART AND MEDIASTINAL STRUCTURES: No mediastinal or hilar or adenopathy. There is an azygos fissure is a normal variant. Nodes are present in the right hilum. LUNGS AND PLEURAL SPACES: Calcified granulomas. There is some atelectatic or fibrotic change within the lingula. No suspicious pulmonary nodules. BONY STRUCTURES: No acute bony abnormalities apparent. UPPER ABDOMEN: See abdomen report ADDITIONAL FINDINGS: MediPort catheter is present from the right subclavian approach IMPRESSION: Stable CT appearance of the chest. No change with no evidence of metastatic disease Dictated by: Ulises Castro MD 05/22/2020 05:51 Ulises Castro MD in [facility] 05/22/2020 05:51
[2020-05-21 08:12] VITALS: BMI 27.4
--- NOTE | 2020-05-21 08:24 | US_ITS ---
PROCEDURE: US THYROID CLINICAL INDICATION: nodules Follow-up thyroid nodules COMPARISON: US US THYROID from 11/28/2019 FINDINGS: Right lobe: 4.1 x 1.2 x 1.8 cm. Is a small area of mixed echogenicity in the mid polar region nonspecific and may only be due to heterogeneous echogenicity. Left lobe: 4.3 x 1.4 x 2.1 cm. Subtle isoechoic nodules present in the upper pole at 6 mm. Previously this area measured 8 mm. There is a 2 mm hypoechoic nodule in the lower pole medially. In the inferior aspect of the left lobe there is a 7 x 5 mm slightly hypoechoic nodule unchanged Isthmus: Unremarkable Additional findings: IMPRESSION: Stable appearance of the thyroid gland with no change in the isoechoic nodule in the upper pole on the left and hypoechoic nodule in the lower pole on the left Dictated by: Ulises Castro MD 05/21/2020 17:58 Ulises Castro MD in [facility] 05/21/2020 17:58
[2020-05-21 08:28] LABS: Basophils % 0.5 % (0.1-2.0); Eosinophils # 0.2 K/mm3 (0.0-0.4); Eosinophils % 2.7 % (0.1-12.0); Hematocrit 40.7 % (37.0-47.0); Hemoglobin 14.4 g/dL (12.2-16.2); Lymphocytes # 1.5 K/mm3 (0.7-4.5); Lymphocytes % 21.8 % (10-50); Mean Corpuscular HGB Conc 35.4 g/dL (31.8-35.4); Mean Corpuscular Hemoglobin 31.5 pg (27.0-31.2); Mean Corpuscular Volume 89.1 fl (81-99); Mean Platelet Volume 9.1 fl (7.4-10.4); Monocytes # 0.4 K/mm3 (0.1-1.0); Monocytes % 6.2 % (1.7-9.3); Neutrophils # 4.9 K/mm3 (1.8-7.8); Neutrophils % 68.8 % (37.0-80.0); Platelet Count 232 K/mm3 (142-424); Red Blood Count 4.56 M/mm3 (4.20-5.40); Red Cell Distribution Width 13.3 % (11.5-17.5)
[2020-05-21 08:34] LABS: Chloride 103 mmol/L (98-107)
[2020-05-21 08:35] LABS: Sodium 138 mmol/L (136-145)
[2020-05-21 08:37] LABS: Alanine Aminotransferase 34 U/L (12-78); Albumin Level 4.4 g/dl (3.5-5.0); Albumin/Globulin Ratio 1.6 (1.1-1.8); Alkaline Phosphatase 80 U/L (38-126); Aspartate Amino Transferase 29 U/L (14-36); Bilirubin,Total 0.5 mg/dl (0.2-1.3); Blood Urea Nitrogen 10 mg/dl (7-17); Carbon Dioxide 30 mmol/L (22.0-30.0); Creatinine Clearance Estimated 111 mL/min (50-200); Estimated Glomerular Filt Rate 87 ml/min (>60); GFR (African American) 105 ML/MIN (>60); Globulin 2.8 g/dL (1.3-3.2); Total Protein,Serum 7.2 g/dl (6.3-8.2)
[2020-05-21 08:38] LABS: Calcium 9.4 mg/dl (8.4-10.2); Glucose 105 mg/dl (74-100)
[2020-05-22 11:18] LABS: CEA 0.8 ng/mL (0.0-4.7)
== END 2020-05-21 09:58 | disposition home or self-care (01) ==
LOC: INF 08:24
PROVIDERS: PCP Nurse Practitioner Family; Visit Provider Internal Medicine Medical Oncology
DX: E04.9 Nontoxic goiter, unspecified (principal); C18.9 Malignant neoplasm of colon, unspecified
CPT/HCPCS: 71260; 74177; 76536; 80053; 82378; 85025; J1642; Q9967

== ENCOUNTER 2020-06-14 09:02 | Outpatient (CLI) | payer OTHER, SELFPAY | END 2020-06-14 09:25 | disposition home or self-care (01) | LOC: INF 09:02 | PROVIDERS: Visit Provider Internal Medicine Medical Oncology | DX: Z45.2 Encounter for adjustment and management of vascular access device (principal); C18.9 Malignant neoplasm of colon, unspecified | CPT/HCPCS: 96523; J1642 ==

== ENCOUNTER → 2020-08-06 09:13 | Outpatient (CLI) | payer OTHER, SELFPAY ==
[2020-08-06 10:20] LABS: Coronavirus 19 IgG Antibody Positive (Negative); Coronavirus 19 IgM Antibody Negative (Negative)
== END ==
PROVIDERS: Visit Provider Surgery
DX: Z01.818 Encounter for other preprocedural examination (principal); Z20.822 Contact with and (suspected) exposure to COVID-19; Z12.11 Encounter for screening for malignant neoplasm of colon; Z86.010 Personal history of colon polyps
CPT/HCPCS: 36415; 86328

== ENCOUNTER 2020-08-07 06:14 | Day surgery (SDC) | payer OTHER, SELFPAY ==
[2020-08-01 13:52] VITALS: BMI 27.4
[2020-08-07 06:37] VITALS: BP 118/70; PULSE 62; RESP 20; TEMP 36.1; O2SAT 97
--- NOTE | 2020-08-07 07:00 | HMH.GSHP ---
HPI HPI: Patient present for follow-up surveillance colonoscopy. She had undergone left hemicolectomy and biopsy of liver nodule by Dr. Albin Bob on 08/13/2015. 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 She was staged as a [id number] a, stage Samra. She did complete 3-1/2 chemotherapy cycles. She is followed by Dr. Sheriff. I have done a couple of subsequent colonoscopies on her and she had several tubular adenomas on colonoscopy done in 2016, colonoscopy in January 2018 revealed more than one tubular adenoma, colonoscopy January 2019 revealed tubular adenoma and possible AVM at the rectum. I performed follow-up sigmoidoscopy to reassess this area and biopsy was performed which was benign. [facility] History I have reviewed the patient's past medical history: Yes Medical History: Reports:: Anxiety, Cancer (colon), Hypertension Denies:: Diabetes Mellitus Type 1, Diabetes Mellitus Type 2, Internal Pacemaker, Lung Disease, MRSA, Seizures *Have you ever received a pneumonia vaccine?: No *Have you received a flu vaccine this season?: Yes Other Medical History: Reports: Chemotherapy, Hypothyroidism, Thyroid Disease. Denies: Blood Transfusion Reaction Laterality Cases: Left: Lumpectomy Other Surgeries: Yes: Cancer Surgery (colon resection), Cardiac Catheterization, Colonoscopy, Colon Resection, , EGD, Hysterectomy-Total, Hysterectomy-Partial, Other. No: Pacemaker Amputation: No Fractures: No - *Social History Last grade of school completed: Some college Smoking Status: Never smoker Tobacco Type: cigarettes # Packs/Day (cigarettes): 1 Alcohol Intake: current Alcohol Intake Frequency:: holidays/special occasions only Substance Use Type: denies use *Occupational Status:: employed Housing: house Household Members: significant other *Travel in the last 8 weeks: Inside the [place] - Psychiatric History Pschychiatric History:: Reports:: Anxiety Family Hx:: Cancer, Coronary Artery Disease, Diabetes, Hypertension Review of Systems - Review of Systems Review of systems:: pertinent systems reviewed and negative unless documented below Meds Home Medications Medication Instructions Recorded Confirmed Type alprazolam 0.5 mg tablet 0.5 mg PO BID PRN tab 08/31/17 08/07/20 History Trazodone HCl 100 mg PO HS 03/11/18 08/07/20 History minoxidil 2.5 mg tablet 2.5 mg PO DAILY #90 tab 07/23/18 08/07/20 Rx bisoprolol fumarate 5 mg tablet 5 mg PO DAILY #90 tab 10/08/18 08/07/20 Rx Allergies Allergy/AdvReac Type Severity Reaction Status Date / Time No Known Allergies Allergy Verified 07/02/20 09:00 Exam Vital signs and Labs for Last 24 Hours: Temp Pulse Resp BP Pulse Ox 97.0 F L 62 20 118/70 97 08/07/20 06:37 08/07/20 06:37 08/07/20 06:37 08/07/20 06:37 08/07/20 06:37 - *Routine HEENT Exam Head: Present: normocephalic Eye: Present: EOMI, PERRL ENT: Present: mucous membranes moist - *Routine Neck Exam Present: supple. Absent: lymphadenopathy - *Routine Respiratory Exam Present: CTA bilaterally - *Routine Cardiovascular Exam Present: RRR - *Routine Abdominal Exam Present: soft, normoactive bowel sounds. Absent: tenderness - *Routine Extremities Exam Absent: cyanosis, clubbing, edema - *Routine Skin Exam Present: warm. Absent: rash - *Routine Neurological Exam Present: alert, oriented X3 Assessment and Plan - Assessment and plan all Dx Assessment and Plan for all problems:: Colonoscopy
--- NOTE | 2020-08-07 07:14 | P.PN_ITS ---
[facility] Anesthesia Checklist - Structural Data Admitted From: Home Planned Operative Procedure/s: colonoscopy Consent for Planned Operative Procedure(s) Verified: Yes - Additional verifications Anesthesia Reactions: No Hx Blood Transfusions: No Blood Transfusion Reaction: No - Airway Assessment C-Spine Mobility Assessed: Yes TMJ Mobility Assessed: Yes Dentition: Good Dentition - Neurological Assessment Level of Consciousness: Awake, Alert, Appropriate - Anesthesia Plan Anesthesia Risk discussed: Yes Anesthesia Plan: Verified ASA Class: II Anesthesia Type: MAC [facility] History I have reviewed the patient's past medical history: Yes Medical History: Reports:: Anxiety, Cancer (colon), Hypertension Denies:: Diabetes Mellitus Type 1, Diabetes Mellitus Type 2, Internal Pacemaker, Lung Disease, MRSA, Seizures *Have you ever received a pneumonia vaccine?: No *Have you received a flu vaccine this season?: Yes Other Medical History: Reports: Chemotherapy, Hypothyroidism, Thyroid Disease. Denies: Blood Transfusion Reaction Anesthesia experience/problems:: none Laterality Cases: Left: Lumpectomy Other Surgeries: Yes: Cancer Surgery (colon resection), Cardiac Catheterization, Colonoscopy, Colon Resection, , EGD, Hysterectomy-Total, Hysterectomy- Partial, Other. No: Pacemaker Amputation: No Fractures: No - *Social History Last grade of school completed: Some college Smoking Status: Never smoker Tobacco Type: cigarettes # Packs/Day (cigarettes): 1 Alcohol Intake: current Alcohol Intake Frequency:: holidays/special occasions only Substance Use Type: denies use *Occupational Status:: employed Housing: house Household Members: significant other *Travel in the last 8 weeks: Inside the [place] - Psychiatric History Pschychiatric History:: Reports:: Anxiety Family Hx:: Cancer, Coronary Artery Disease, Diabetes, Hypertension
[2020-08-07 07:20] VITALS: O2SAT 97
--- NOTE | 2020-08-07 07:49 | HMH.SCOPE ---
- Procedure: Date: 08/07/20 Patient Date of :: 1965 Procedure Performed:: Total colonoscopy to terminal ileum with polypectomy using biopsy forceps Indications:: Patient present for follow-up surveillance colonoscopy. She had undergone left hemicolectomy and biopsy of liver nodule by Dr. Albin Bob on 08/13/2015. 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 She was staged as a [id number] a, stage Samra. She did complete 3-1/2 chemotherapy cycles. She is followed by Dr. Sheriff. I have done a couple of subsequent colonoscopies on her and she had several tubular adenomas on colonoscopy done in 2016, colonoscopy in January 2018 revealed more than one tubular adenoma, colonoscopy January 2019 revealed tubular adenoma and possible AVM at the rectum. I performed follow-up sigmoidoscopy to reassess this area and biopsy was performed which was benign. Performing Provider:: Jose Nazario MD Referring Provider:: None Sedation:: MAC sedation Procedure:: Patient was taken to endoscopy procedure room and positioned in a lateral decubitus position. Adequate intravenous sedation was achieved with anesthesia titration of propofol. Variable stiffness Olympus colonoscope was inserted via the anus and advanced to the cecum. Ileocecal valve and appendiceal orifice were identified. Colonoscope was advanced into the terminal ileum which appeared grossly normal. Colonoscope was withdrawn through the colon with careful surveillance. There appeared to be a [id number]-[id number] staple anastomosis approximately 70 cm from the anal verge. There was no evidence of any local recurrence. In the distal sigmoid colon there were tiny diminutive polyps, likely hyperplastic, removed with cold biopsy forceps. At the rectosigmoid region there is similar hyperplastic appearing polyps removed with cold biopsy forceps. Previously noted area of rectal biopsy consistent with AVM was noted and additional biopsy was obtained. Retroflexion within the rectum revealed internal hemorrhoids which appeared nonpathologic. Colonoscope was withdrawn. Findings:: Diminutive polyps consistent with hyperplastic. Probable focal proctitis in the rectum, previously biopsied, repeat biopsy performed Nonpathologic internal hemorrhoids Recommendations:: Repeat colonoscopy 2 or 3 years given prior history. Complications:: None immediately apparent Estimated blood obtained (mL): 2
[2020-08-07 07:50] VITALS: BP 81/49; PULSE 68; RESP 12; TEMP 36.3; O2SAT 95
[2020-08-07 08:00] VITALS: BP 117/62; PULSE 65; RESP 16; O2SAT 97
[2020-08-07 08:10] VITALS: BP 99/62; PULSE 62; RESP 16; O2SAT 98
[2020-08-07 08:20] VITALS: BP 109/60; PULSE 61; RESP 16; TEMP 36.3; O2SAT 96
== END 2020-08-07 08:25 | disposition home or self-care (01) ==
LOC: OUTP 06:16
PROVIDERS: PCP Nurse Practitioner Family; Visit Provider Surgery
PROC: 0DJD8ZZ Inspection of Lower Intestinal Tract, Via Natural or Artificial Opening Endoscopic (ICD-10-PCS; CPT 45380; principal; 2020-08-07 07:30)
DX: Z12.11 Encounter for screening for malignant neoplasm of colon (principal); K63.5 Polyp of colon; K62.89 Other specified diseases of anus and rectum; K64.9 Unspecified hemorrhoids; Z90.49 Acquired absence of other specified parts of digestive tract; Z85.030 Personal history of malignant carcinoid tumor of large intestine; I10 Essential (primary) hypertension; F41.9 Anxiety disorder, unspecified; E03.9 Hypothyroidism, unspecified; Z80.9 Family history of malignant neoplasm, unspecified; Z82.49 Family history of ischemic heart disease and other diseases of the circulatory system; Z83.3 Family history of diabetes mellitus
CPT/HCPCS: 45380; J1642

== ENCOUNTER 2020-12-21 08:29 | Outpatient (CLI) | payer BC, SELFPAY ==
[2020-12-21 08:14] VITALS: BMI 27.9
--- NOTE | 2020-12-21 08:33 | CT_ITS ---
PROCEDURE: CT CHEST W CON CLINCAL INDICATION: COLON CA Follow-up colon cancer COMPARISON: CT CT CHEST W CON from 12/09/[address] CHEST W CON from 05/21/2020 TECHNIQUE: IV Contrast: 75ml Isovue 370 Axial images obtained with sagittal and coronal reformats. All CT scans at the facility use one or more dose reduction, viz: automated exposure control, ma/kV adjustment per patient size (including targeted exams where dose is matched to indication, i.e. head), or iterative reconstruction technique. FINDINGS: HEART AND MEDIASTINAL STRUCTURES: Unremarkable. LUNGS AND PLEURAL SPACES: Calcified nodule once again noted in the right upper lobe and right middle lobe. No suspicious pulmonary nodules apparent BONY STRUCTURES: No acute bony abnormalities apparent. UPPER ABDOMEN: Unremarkable. ADDITIONAL FINDINGS: MediPort catheter is present from the right subclavian approach as before. IMPRESSION: Stable CT appearance of the chest. No convincing evidence of metastatic disease. Dictated by: Ulises Castro MD 12/21/2020 15:07 Ulises Castro MD in [facility] 12/21/2020 15:07
--- NOTE | 2020-12-21 08:33 | CT_ITS ---
PROCEDURE: CT ABDOMEN PELVIS W CON CLINICAL INDICATION: COLON CA COMPARISON: CT CT ABDOMEN PELVIS W CON from 05/21/2020 TECHNIQUE: IV Contrast: 75ML Isovue 370 Oral Contrast 450ml Redicat Axial images obtained with sagittal and coronal reformats. All CT scans at the facility use one or more dose reduction, viz: automated exposure control, ma/kV adjustment per patient size (including targeted exams where dose is matched to indication, i.e. head), or iterative reconstruction technique. FINDINGS: LOWER THORAX: No acute finding ABDOMEN & PELVIS: The liver, spleen, adrenal glands, pancreas, and gallbladder have an unremarkable appearance. There are small left renal cysts. No renal or ureteral calculi. No retroperitoneal mass or adenopathy. No evidence of appendicitis. No intestinal obstruction or free air. No pelvic mass or abnormal fluid collection. There has been a prior hysterectomy. Suture line noted with anastomosis in the splenic flexure region. IMPRESSION: No change with no evidence of metastatic disease Dictated by: Ulises Castro MD 12/21/2020 15:13 Ulises Castro MD in [facility] 12/21/2020 15:13
[2020-12-21 08:42] LABS: Basophils # 0.1 K/mm3 (0-0.2); Basophils % 0.7 % (0.1-2.0); Eosinophils # 0.2 K/mm3 (0.0-0.4); Eosinophils % 3.1 % (0.1-12.0); Hematocrit 37.8 % (37.0-47.0); Hemoglobin 13.5 g/dL (12.2-16.2); Lymphocytes # 1.9 K/mm3 (0.7-4.5); Mean Corpuscular HGB Conc 35.7 g/dL (31.8-35.4); Mean Corpuscular Hemoglobin 30.8 pg (27.0-31.2); Mean Corpuscular Volume 86.2 fl (81-99); Mean Platelet Volume 8.6 fl (7.4-10.4); Monocytes # 0.4 K/mm3 (0.1-1.0); Monocytes % 5.8 % (1.7-9.3); Neutrophils # 4.6 K/mm3 (1.8-7.8); Neutrophils % 64.4 % (37.0-80.0); Platelet Count 229 K/mm3 (142-424); Red Blood Count 4.38 M/mm3 (4.20-5.40); Red Cell Distribution Width 13.5 % (11.5-17.5); White Blood Count 7.2 K/mm3 (4.8-10.8)
[2020-12-21 08:52] LABS: Chloride 104 mmol/L (98-107); Sodium 141 mmol/L (136-145)
[2020-12-21 08:54] LABS: Blood Urea Nitrogen 13 mg/dl (7-17); Creatinine Clearance Estimated 130 mL/min (50-200); Estimated Glomerular Filt Rate 103 ml/min (>60); GFR (African American) 125 ML/MIN (>60)
[2020-12-21 08:55] LABS: Alanine Aminotransferase 33 U/L (12-78); Albumin Level 4.5 g/dl (3.5-5.0); Albumin/Globulin Ratio 1.6 (1.1-1.8); Alkaline Phosphatase 97 U/L (38-126); Aspartate Amino Transferase 43 U/L (14-36); Bilirubin,Total 0.5 mg/dl (0.2-1.3); Carbon Dioxide 30 mmol/L (22.0-30.0); Globulin 2.9 g/dL (1.3-3.2); Glucose 101 mg/dl (74-100); Total Protein,Serum 7.4 g/dl (6.3-8.2)
[2020-12-21 08:57] LABS: Chol/HDL Ratio 5.9 (1-3.5); Cholesterol 220 mg/dl (140-200); HDL Cholesterol 37 mg/dl (40-60); Triglycerides 130 mg/dl (30-150); VLDL Cholesterol 26 mg/dL (0-40)
[2020-12-21 09:00] LABS: Calcium 9.2 mg/dl (8.4-10.2)
[2020-12-21 09:08] LABS: Direct LDL Cholesterol 140.77 mg/dL (100-129)
--- NOTE | 2020-12-21 09:18 | US_ITS ---
PROCEDURE: US THYROID CLINICAL INDICATION: goiter COMPARISON: US US THYROID from 05/21/2020 FINDINGS: Right lobe: 3 mm cyst upper pole. In the mid polar region there is a 4 mm hypoechoic nodule with heterogeneous echogenicity unchanged. The right lobe measures 4.5 x 1.4 x 1.7 cm Left lobe: 4.4 x 1.1 x 1 7 cm. 7 mm hypoechoic nodule upper pole not significantly changed. 3 mm hypoechoic nodule lower pole centrally unchanged. 7 mm mixed nodule lower pole unchanged Isthmus: Unremarkable Additional findings: IMPRESSION: No significant change small bilateral thyroid nodules. Suggest annual follow-up Dictated by: Ulises Castro MD 12/21/2020 14:12 Ulises Castro MD in [facility] 12/21/2020 14:12
[2020-12-22 11:25] LABS: CEA 0.6 ng/mL (0.0-4.7)
== END 2020-12-21 09:53 | disposition home or self-care (01) ==
LOC: RAD 08:29
PROVIDERS: Internal Medicine Cardiovascular Disease; Nurse Practitioner Family; PCP Nurse Practitioner Family; Visit Provider Internal Medicine Medical Oncology
DX: C18.9 Malignant neoplasm of colon, unspecified (principal); R00.0 Tachycardia, unspecified; I10 Essential (primary) hypertension; E04.9 Nontoxic goiter, unspecified; E78.5 Hyperlipidemia, unspecified; R06.83 Snoring; R40.0 Somnolence
CPT/HCPCS: 71260; 74177; 76536; 80053; 80061; 82378; 83880; 85025; J1642; Q9967

== ENCOUNTER → 2021-01-10 10:03 | Outpatient (CLI) | payer BC, SELFPAY ==
--- NOTE | 2021-01-10 10:05 | CA_ITS ---
APPROVED REPORT Exam: Exercise Treadmill Technologist: Samara Olivas, Ht: 5 ft 5 in Wt: 173 lbs BSA: 1.86 m2 HR: 70 bpm BP: 136/80 mmHg Medical History Medications: Trazadone,,,,, BisOPROLOL Fumarate,,,,, Alpazolam,,,,, MiNOxidil,,,,, Stress Test Details Test: Carlos HR Resting HR: 69 bpm Max Heart Rate (APMHR): 164 bpm Max HR Achieved: 126 bpm Target HR (85% APMHR): 139 bpm % of APMHR: 76 Recovery HR: 74 bpm BP Resting BP: 131/70 mmHg Max BP: 168/86 mmHg Recovery BP: 123.0/70.0 mmHg ECG Resting ECG: NSR, 1degree AVB Clinical Exercise duration: 08:06 min Highest Stage Achieved: Exercise capacity: 10.1 METs Stress ECG Conclusion Exercised 8:06 on Carlos Protocol, stopping due to SOA. Max HR: 126 % of PM: 77% Max BP: 168/86 MET's: 10.1 Test stopped due to: SOA, Fatigue Symptoms: No CP Arrhythmieas/Ectopy: Occ PVC ST-T Changes: Normal ST response to exercise Conclusion: Normal GXT to HR achieved (77% of PM). Blunted HR response on Bisoprolol. GXT only (no imaging). Electronically signed by : Michele Guardado MD 01/10/2021 14:56:36
--- NOTE | 2021-01-10 10:05 | CA_ITS ---
APPROVED REPORT EXAM: Comprehensive 2D, Doppler, and color-flow Echocardiogram Purification Operator: Kayce Champagne, RCS, RVS Ht: 5 ft 6 in Wt: 173lbs BSA: 1.88 BP: 130/76 mmHg Indications: SOB, Tachycardia, Hx-Lung ca with recurring benign lung tumors. Echo Enhancing Agent Comments: Poor acoustic images throughout. 2D Dimensions IVSd 0.94 cm LVEF (Visual) 64.50 % PWd 0.83 cm LA Volume 32.00 mL LVDd 5.13 cm LA Volume Index [id number] mL/m2 (M/F) 16-34 LVDs 3.31 cm LVOT 2.04 cm (M/F) 1.5-2.5 M-Mode Dimensions LA Diam 2.72 cm (1.9-4.0) Ao Diam 3.04 cm (2.0-3.7) EPSs 1.11 cm TAPSE 1.91 (<1.7) LV Diastology E Decel Time 337.00 (160-240 msec) E/A Ratio 0.90 MED E' 6.80 (< 7 cm/sec) MED A' 9.40 cm/s E'/MED E' Ratio 9.71 (>14) LAT E' 9.50 (<10 cm/sec) LAT A' 9.00 cm/s E/LAT E' Ratio 6.95 (>14) Aortic Valve LVOT Max 89.00 (70-110 cm/s) LVOT VTI 18.37 cm AoV Peak Sebas. 119.00 (50-130 cm/s) AO Peak GR. 5.70 mmHg AO Mean GR. 3.10 (<5 mmHg) AO VTI 25.76 (18-25 cm) MAGDIEL (VTI) 2.33 (2.5-4.5 cm2) Mitral Valve MV A Velocity 73.00 (40-130 cm/s) E/A Ratio 0.90 MV Decel. Time 337.00 (160-240 ms) Pulmonary Valve PV Peak Velocity 66.00 (50-150 cm/s) MA End VMAX 138.00 cm/s Tricuspid Valve TR P. Velocity 204.00 cm/s Left Ventricle Left atrium is mildly enlarged, left ventricle is normal size, mild concentric left ventricular hypertrophy, visually estimated ejection fraction 55% with no regional wall motion abnormality, grade 1 diastolic dysfunction seen without tissue Doppler evidence of raise left atrial pressure. Right Ventricle Right atrium and right ventricle are normal size and contractility. Aortic Valve Aortic valve is minimally thickened and fibrosed, there is no aortic stenosis or aortic insufficiency. Mitral Valve Mitral valve grossly normal, there is trace mitral regurgitation. Tricuspid Valve Tricuspid grossly normal, there is trace tricuspid rotation, calculated right ventricular systolic pressure is within normal range. Pulmonic Valve Pulmonic valve is poorly visualized. Great Vessels Aortic root is normal size. Pericardium No significant pericardial effusion noted. Conclusion 1. Mildly enlarged left atrium, normal left ventricular size, mild concentric left ventricular hypertrophy, visually estimated ejection fraction 55% with no regional wall motion abnormality, grade 1 diastolic dysfunction seen without tissue Doppler evidence of raise left atrial pressure. 2. Trace mitral and tricuspid regurgitation, calculated right ventricular systolic pressure within normal range. 3. No significant pericardial effusion noted. Electronically signed by : Michele Guardado MD 01/10/2021 15:55:11
== END ==
LOC: RT 10:05
PROVIDERS: PCP Nurse Practitioner Family; Visit Provider Internal Medicine Cardiovascular Disease
DX: R00.0 Tachycardia, unspecified (principal); I10 Essential (primary) hypertension; R06.83 Snoring; R40.0 Somnolence
CPT/HCPCS: 93017; 93306; 95806

== ENCOUNTER 2021-01-22 08:50 | Outpatient (CLI) | payer BC, SELFPAY ==
[2021-01-22 09:48] LABS: Anion Gap 12.9 mEq/L (5-15); Blood Urea Nitrogen 15 mg/dl (7-17); Carbon Dioxide 29 mmol/L (22.0-30.0); Chloride 103 mmol/L (98-107); Estimated Glomerular Filt Rate 103 ml/min (>60); GFR (African American) 125 ML/MIN (>60); Glucose 115 mg/dl (74-100); Potassium 3.9 mmoL/L (3.5-5.1); Sodium 141 mmol/L (136-145)
[2021-01-22 10:15] LABS: Free T4 (Free Thyroxine) 1.09 ng/dl (0.78-2.19)
[2021-01-22 10:19] LABS: Thyroid Stimulating Hormone 2.09 uIU/mL (0.465-4.68)
[2021-01-23 08:21] LABS: Thyroid Peroxidase Antibodies <8 IU/mL (0-34)
[2021-01-24 08:52] LABS: Thyroid Stimulating Immunoglob <0.10 IU/L (0.00-0.55)
== END 2021-01-22 09:15 | disposition home or self-care (01) ==
LOC: INF 08:51
PROVIDERS: Internal Medicine Cardiovascular Disease; Otolaryngology; Visit Provider Internal Medicine Medical Oncology
DX: R06.02 Shortness of breath (principal); E04.9 Nontoxic goiter, unspecified; I10 Essential (primary) hypertension; I51.89 Other ill-defined heart diseases; G47.33 Obstructive sleep apnea (adult) (pediatric)
CPT/HCPCS: 80048; 84439; 84443; 84445; 86376; J1642

== ENCOUNTER 2021-02-28 14:18 | Outpatient (CLI) | payer BC, SELFPAY | END 2021-02-28 14:48 | disposition home or self-care (01) | LOC: INF 14:18 | PROVIDERS: Visit Provider Internal Medicine Medical Oncology | DX: Z45.2 Encounter for adjustment and management of vascular access device (principal) | CPT/HCPCS: 96523; J1642 ==

== ENCOUNTER 2021-03-25 13:47 | Outpatient (CLI) | payer BC, SELFPAY | END 2021-03-25 14:00 | disposition home or self-care (01) | LOC: INF 13:48 | PROVIDERS: PCP Nurse Practitioner Family; Visit Provider Internal Medicine Medical Oncology | DX: Z45.2 Encounter for adjustment and management of vascular access device (principal); C18.9 Malignant neoplasm of colon, unspecified | CPT/HCPCS: 96523; J1642 ==

== ENCOUNTER 2021-05-08 08:33 | Outpatient (CLI) | payer BC, SELFPAY | END 2021-05-08 08:45 | disposition home or self-care (01) | LOC: INF 08:33 | PROVIDERS: PCP Nurse Practitioner Family; Visit Provider Internal Medicine Medical Oncology | DX: Z45.2 Encounter for adjustment and management of vascular access device (principal) | CPT/HCPCS: 96523; J1642 ==

== ENCOUNTER 2021-06-26 09:49 | Outpatient (CLI) | payer BC, SELFPAY ==
[2021-06-26 09:53] VITALS: BMI 26.6
[2021-06-26 10:29] LABS: Basophils # 0.1 K/mm3 (0-0.2); Basophils % 1.2 % (0.1-2.0); Eosinophils # 0.3 K/mm3 (0.0-0.4); Eosinophils % 3.9 % (0.1-12.0); Hematocrit 39.3 % (37.0-47.0); Hemoglobin 13.5 g/dL (12.2-16.2); Lymphocytes # 1.9 K/mm3 (0.7-4.5); Lymphocytes % 26.9 % (10-50); Mean Corpuscular HGB Conc 34.3 g/dL (31.8-35.4); Mean Corpuscular Hemoglobin 31.1 pg (27.0-31.2); Mean Corpuscular Volume 90.6 fl (81-99); Mean Platelet Volume 9.8 fl (7.4-10.4); Monocytes # 0.5 K/mm3 (0.1-1.0); Monocytes % 6.5 % (1.7-9.3); Neutrophils # 4.4 K/mm3 (1.8-7.8); Neutrophils % 61.5 % (37.0-80.0); Platelet Count 261 K/mm3 (142-424); Red Blood Count 4.34 M/mm3 (4.20-5.40); Red Cell Distribution Width 13.3 % (11.5-17.5); White Blood Count 7.1 K/mm3 (4.8-10.8)
[2021-06-26 10:33] LABS: Chloride 106 mmol/L (98-107); Potassium 3.8 mmoL/L (3.5-5.1); Sodium 138 mmol/L (136-145)
[2021-06-26 10:36] LABS: Alanine Aminotransferase 24 U/L (12-78); Albumin/Globulin Ratio 1.4 (1.1-1.8); Alkaline Phosphatase 67 U/L (38-126); Anion Gap 5.8 mEq/L (5-15); Aspartate Amino Transferase 30 U/L (14-36); Bilirubin,Total 0.3 mg/dl (0.2-1.3); Blood Urea Nitrogen 13 mg/dl (7-17); Carbon Dioxide 30 mmol/L (22.0-30.0); Creatinine Clearance Estimated 109 mL/min (50-200); Estimated Glomerular Filt Rate 87 ml/min (>60); GFR (African American) 105 ML/MIN (>60); Globulin 2.8 g/dL (1.3-3.2); Total Protein,Serum 6.8 g/dl (6.3-8.2)
[2021-06-26 10:37] LABS: Calcium 8.9 mg/dl (8.4-10.2); Glucose 104 mg/dl (74-100)
[2021-06-27 10:18] LABS: CEA <0.3 ng/mL (0.0-4.7)
== END 2021-06-26 10:20 | disposition home or self-care (01) ==
LOC: INF 09:51
PROVIDERS: PCP Nurse Practitioner Family; Visit Provider Internal Medicine Medical Oncology
DX: C18.9 Malignant neoplasm of colon, unspecified (principal); Z45.2 Encounter for adjustment and management of vascular access device
CPT/HCPCS: 80053; 82378; 85025; J1642

== ENCOUNTER 2021-07-01 08:14 | Outpatient (CLI) | payer BC, SELFPAY ==
--- NOTE | 2021-07-01 08:34 | CT_ITS ---
FINAL REPORT TECHNIQUE: After the administration of intravenous contrast, axial images through the chest were performed by computed tomography.This study was performed with techniques to keep radiation doses as low as reasonably achievable, (ALARA). Individualized dose reduction techniques using automated exposure control or adjustment of mA and/or kV according to the patient''s size were employed. CLINICAL HISTORY: COLON CA f/u COMPARISON: 12/21/2020 FINDINGS: Incidentally noted is an azygos pseudo-lobe. There is a port with the tip in the SVC. There is no axillary adenopathy. There is no hilar or mediastinal adenopathy. The heart size is normal. There is no pericardial or pleural effusion. No suspicious infiltrate or nodule identified. Calcified granulomas are seen in the right lung. There is scarring in the lingula. There is no evidence of metastatic disease. IMPRESSION: No acute process or evidence of metastatic disease. Reviewed, Interpreted and Dictated by Benji Morocho MD Transcribed by Angelic Tellez Authenticated by Benji Morocho MD on 07/01/2021 12:17:[address] [facility]
--- NOTE | 2021-07-01 08:34 | CT_ITS ---
FINAL REPORT TECHNIQUE: After the administration of intravenous contrast, axial images were obtained through the abdomen and pelvis by computed tomography. This study was performed with technique to keep radiation doses as low as reasonably achievable, (ALARA). Individualized dose reduction techniques using automated exposure control or adjustment of the MA and/or KV according to the patient's size were employed. CLINICAL HISTORY: COLON CA COMPARISON: 12/21/2020 FINDINGS: Abdomen: The liver is normal in size and attenuation. The spleen and gallbladder are unremarkable. The adrenals are normal. The pancreas is unremarkable. The kidneys enhance appropriately. The aorta is normal in caliber. There is no free fluid or adenopathy. There are postoperative changes at the splenic flexure of the colon. Pelvis: The appendix is not identified. The urinary bladder is unremarkable. There is no free fluid or adenopathy. Phleboliths are seen in the floor the pelvis. There is no acute osseous abnormality or evidence of metastatic disease. IMPRESSION: No acute intra-abdominal process or evidence of metastatic disease. Reviewed, Interpreted and Dictated by Benji Morocho MD Transcribed by Angelic Tellez Authenticated by Benji Morocho MD on 07/01/2021 12:17:58 PM [facility]
== END 2021-07-01 09:34 | disposition home or self-care (01) ==
LOC: INF 08:15
PROVIDERS: PCP Nurse Practitioner Family; Visit Provider Internal Medicine Medical Oncology
DX: C18.9 Malignant neoplasm of colon, unspecified (principal)
CPT/HCPCS: 71260; 74177; J1642; Q9967

== ENCOUNTER 2021-09-27 11:25 | Day surgery (SDC) | payer BC, SELFPAY ==
[2021-09-25 13:50] VITALS: BMI 27.4
[2021-09-27 11:51] VITALS: BP 107/57; PULSE 71; RESP 18; TEMP 36.1; O2SAT 96
--- NOTE | 2021-09-27 12:24 | HMH.ANESCL ---
[facility] Anesthesia Checklist - Patient Identification Patient Identification: Arm Band - Structural Data Admitted From: Home Planned Operative Procedure/s: colonoscopy Consent for Planned Operative Procedure(s) Verified: Yes Verified Documents: Surgical Consent, History and Physical - NPO Status Verified Time NPO: 00:00 - Additional verifications Anesthesia Reactions: No Hx Blood Transfusions: No Blood Transfusion Reaction: No - Airway Assessment C-Spine Mobility Assessed: Yes (mp2) TMJ Mobility Assessed: Yes Dentition: Good Dentition - Neurological Assessment Level of Consciousness: Awake, Alert - Anesthesia Plan Anesthesia Risk discussed: Yes Anesthesia Plan: Verified ASA Class: II Anesthesia Type: MAC [facility] History I have reviewed the patient's past medical history: Yes Medical History: Reports:: Anxiety, Cancer (colon), Hypertension Denies:: Diabetes Mellitus Type 1, Diabetes Mellitus Type 2, Internal Pacemaker, Lung Disease, MRSA, Seizures *Have you ever received a pneumonia vaccine?: No *Have you received a flu vaccine this season?: Yes Other Medical History: Reports: Chemotherapy, Hypothyroidism, Thyroid Disease, Other. Denies: Blood Transfusion Reaction Anesthesia experience/problems:: nac Laterality Cases: Right: Lumpectomy Other Surgeries: Yes: Cancer Surgery (colon resection), Cardiac Catheterization, Colonoscopy, Colon Resection, , EGD, Hysterectomy-Total, Hysterectomy-Partial, Other. No: Pacemaker Amputation: No Fractures: No - *Social History Smoking Status: Former smoker Tobacco Type: cigarettes # Packs/Day (cigarettes): 1 Alcohol Intake: never Alcohol Intake Frequency:: holidays/special occasions only Substance Use Type: denies use *Occupational Status:: unemployed Housing: house Household Members: spouse *Travel in the last 8 weeks: Inside the [place] - Psychiatric History Pschychiatric History:: Reports:: Anxiety Family Hx:: No significant family history
[2021-09-27 12:52] VITALS: O2SAT 96
--- NOTE | 2021-09-27 13:18 | HMH.SCOPE ---
- Procedure: Date: 09/27/21 Patient Date of :: 1965 Procedure Performed:: Total colonoscopy to terminal ileum with polypectomy by snare and biopsy forceps Indications:: Patient is a 55-year-old female who had undergone left hemicolectomy by Dr. Bob on 08/13/2015 for a [id number] (stage Samra) colon cancer metastatic to liver. She has had several subsequent colonoscopies. Last colonoscopy was 08/07/2020. Performing Provider:: Jose Nazario MD Referring Provider:: Allie Velez Sedation:: MAC sedation Procedure:: Patient was taken to endoscopy procedure room. She was positioned in lateral decubitus position. Adequate intravenous sedation was achieved with anesthesia titration of propofol. Variable stiffness Olympus colonoscope was inserted via the anus. Is advanced to the cecum. There was some liquid stool throughout the colon but with irrigation and suctioning good visualization was achieved. Ileocecal valve and appendiceal orifice were clearly identified. Colonoscope was advanced into the terminal ileum. Colonoscope was slowly withdrawn through the colon with careful surveillance. Irrigation and suctioning was performed as needed. In the transverse colon there was a 4 mm adenomatous polyp removed with cold snare. There was some left-sided diverticulosis. Anastomosis was identified at approximately 35 cm from the anal verge. Within the rectum there is a tiny sessile hyperplastic appearing polyp removed with cold biopsy forceps. Retroflexion within the rectum revealed no evidence of any pathologic hemorrhoids. Colonoscope was withdrawn. Findings:: Sigmoid diverticulosis Anastomosis at 35 cm Transverse colon 4 mm adenomatous appearing polyp Hyperplastic appearing rectal polyp Recommendations:: Likely repeat colonoscopy 1 year Complications:: None immediately apparent Estimated blood obtained (mL): 1
[2021-09-27 13:20] VITALS: BP 96/65; PULSE 84; RESP 16; TEMP 36.2; O2SAT 94
[2021-09-27 13:30] VITALS: BP 95/61; PULSE 68; RESP 16; TEMP 36.2; O2SAT 95
[2021-09-27 13:40] VITALS: BP 105/69; PULSE 67; RESP 16; TEMP 36.2; O2SAT 97
[2021-09-27 13:57] VITALS: BP 107/63; PULSE 74; RESP 18; TEMP 36.2; O2SAT 97
== END 2021-09-27 13:55 | disposition home or self-care (01) ==
LOC: OUTP 11:26
PROVIDERS: PCP Nurse Practitioner Family; Visit Provider Surgery
PROC: 0DJD8ZZ Inspection of Lower Intestinal Tract, Via Natural or Artificial Opening Endoscopic (ICD-10-PCS; CPT 45380; principal; 2021-09-27 12:30)
DX: K57.30 Diverticulosis of large intestine without perforation or abscess without bleeding (principal); K63.5 Polyp of colon; K62.1 Rectal polyp; Z90.49 Acquired absence of other specified parts of digestive tract; Z85.030 Personal history of malignant carcinoid tumor of large intestine; Z85.05 Personal history of malignant neoplasm of liver; I10 Essential (primary) hypertension; F41.9 Anxiety disorder, unspecified; E03.9 Hypothyroidism, unspecified; Z87.891 Personal history of nicotine dependence; Z79.899 Other long term (current) drug therapy; E78.5 Hyperlipidemia, unspecified
CPT/HCPCS: 45380; 45385; J1642

== ENCOUNTER 2021-12-03 14:48 | Outpatient (CLI) | payer BC, SELFPAY | END 2021-12-03 15:15 | disposition home or self-care (01) | LOC: INF 14:49 | PROVIDERS: PCP Nurse Practitioner Family; Visit Provider Internal Medicine Medical Oncology | DX: Z45.2 Encounter for adjustment and management of vascular access device (principal) | CPT/HCPCS: 96523; J1642 ==

== ENCOUNTER 2022-01-08 09:08 | Outpatient (CLI) | payer BC, SELFPAY ==
--- NOTE | 2022-01-08 | CT_ITS ---
FINAL REPORT CLINICAL HISTORY: colon cancer. COMPARISON: July 01, 2021 FINDINGS: CT OF THE ABDOMEN AND PELVIS WITH CONTRAST Axial CT images of the abdomen and pelvis were obtained after the administration of oral and intravenous contrast. Coronal reformatted images were also obtained and reviewed.This study was performed with techniques to keep radiation doses as low as reasonably achievable (ALARA). Individualized dose reduction techniques using automated exposure control or adjustment of mA and/or kV according to the patient's size were employed. Abdomen: The heart is normal in size. The liver has an unremarkable appearance, without evidence of mass or biliary ductal dilatation. The gallbladder is present. The spleen is unremarkable. No adrenal mass is present. The pancreas has an unremarkable appearance. There are multiple low-attenuation masses in the left kidney measuring up to 12 mm that are stable from the prior exam a most likely represent multiple cysts. The aorta is normal in caliber. There is no free fluid or adenopathy. Postoperative changes are seen at the splenic flexure of the colon. There is mild vascular calcification. Pelvis: The appendix is normal. There has been hysterectomy. The urinary bladder is unremarkable. No inflammatory process is seen. There is no evidence of mass or adenopathy. There is no evidence of bowel obstruction. There is no acute bony abnormality. IMPRESSION: No evidence of acute intra-abdominal process. Stable low-attenuation left renal mass is most likely represent cysts. No evidence of metastatic disease. Reviewed, Interpreted and Dictated by Jose Garcia III, MD Transcribed by Jose Luis Cavazos Authenticated and [facility]
[2022-01-08 08:56] VITALS: BMI 27.9
[2022-01-08 09:24] LABS: Red Blood Count 4.38 M/mm3 (4.20-5.40); White Blood Count 7.6 K/mm3 (4.8-10.8)
[2022-01-08 09:25] LABS: Basophils # 0.1 K/mm3 (0-0.2); Basophils % 0.9 % (0.1-2.0); Eosinophils # 0.2 K/mm3 (0.0-0.4); Eosinophils % 2.2 % (0.1-12.0); Hemoglobin 13.3 g/dL (12.2-16.2); Lymphocytes # 1.5 K/mm3 (0.7-4.5); Lymphocytes % 19.8 % (10-50); Mean Corpuscular HGB Conc 33.2 g/dL (31.8-35.4); Mean Corpuscular Hemoglobin 30.3 pg (27.0-31.2); Mean Corpuscular Volume 91.3 fl (81-99); Mean Platelet Volume 9.8 fl (7.4-10.4); Monocytes # 0.5 K/mm3 (0.1-1.0); Monocytes % 6.3 % (1.7-9.3); Neutrophils # 5.3 K/mm3 (1.8-7.8); Neutrophils % 70.8 % (37.0-80.0); Platelet Count 274 K/mm3 (142-424); Red Cell Distribution Width 13.9 % (11.5-17.5)
[2022-01-08 09:43] LABS: Alanine Aminotransferase 29 U/L (12-78); Albumin Level 4.1 g/dl (3.5-5.0); Albumin/Globulin Ratio 1.5 (1.1-1.8); Alkaline Phosphatase 90 U/L (38-126); Anion Gap 9.9 mEq/L (5-15); Aspartate Amino Transferase 34 U/L (14-36); Bilirubin,Total 0.2 mg/dl (0.2-1.3); Blood Urea Nitrogen 17 mg/dl (7-17); Calcium 9.3 mg/dl (8.4-10.2); Carbon Dioxide 28 mmol/L (22.0-30.0); Chloride 107 mmol/L (98-107); Creatinine Clearance Estimated 128 mL/min (50-200); Estimated Glomerular Filt Rate 103 ml/min (>60); GFR (African American) 125 ML/MIN (>60); Globulin 2.7 g/dL (1.3-3.2); Glucose 109 mg/dl (74-100); Potassium 3.9 mmoL/L (3.5-5.1); Sodium 141 mmol/L (136-145); Total Protein,Serum 6.8 g/dl (6.3-8.2)
--- NOTE | 2022-01-08 10:03 | CT_ITS ---
FINAL REPORT CLINICAL HISTORY: COLON CANCER COMPARISON: July 01, 2021 FINDINGS: Axial CT images of the chest were obtained with contrast. Coronal reformatted images were also obtained. This study was performed with techniques to keep radiation doses as low as reasonably achievable, (ALARA). Individualized dose reduction techniques using automated exposure control or adjustment of mA and/or KV according to the patient''''s size were employed. A right jugular chest port is again seen. There is a stable 11 mm left hilar lymph node. There is no mediastinal adenopathyNo axillary mass or adenopathy is identified. On lung window images, no pulmonary mass or dominant pulmonary nodule is identified. Calcified granulomas are seen in the right lung. No localized pulmonary inflammatory process is identified. IMPRESSION: No mass or localized inflammatory process. Reviewed, Interpreted and Dictated by Jose Garcia III, MD Transcribed by Jose Luis Cavazos Authenticated and . [facility]
== END 2022-01-08 10:20 | disposition home or self-care (01) ==
LOC: INF 09:09
PROVIDERS: PCP Nurse Practitioner Family; Visit Provider Internal Medicine Medical Oncology
DX: C18.9 Malignant neoplasm of colon, unspecified (principal); Z03.89 Encounter for observation for other suspected diseases and conditions ruled out
CPT/HCPCS: 36591; 71260; 74177; 80053; 85025; J1642; Q9967

== ENCOUNTER 2022-03-11 13:52 | Outpatient (CLI) | payer BC, SELFPAY | END 2022-03-11 14:15 | disposition home or self-care (01) | LOC: INF 13:53 | PROVIDERS: PCP Nurse Practitioner Family; Visit Provider Internal Medicine Medical Oncology | DX: Z45.2 Encounter for adjustment and management of vascular access device (principal) | CPT/HCPCS: 96523; J1642 ==

== ENCOUNTER → 2022-04-10 12:33 | Outpatient (CLI) | payer BC, SELFPAY ==
--- NOTE | 2022-04-10 12:33 | US_ITS ---
FINAL REPORT CLINICAL HISTORY: thyroid nodules COMPARISON: 12/21/2020 FINDINGS: Sonographic images of the thyroid were obtained. The right lobe of the thyroid measures 4.5 x 1.3 x 1.8 cm. The left lobe of the thyroid measures 4.8 x 1.1 x 1.4 cm. There is a cystic nodule in the right lobe of the thyroid measuring 3 x 2 x 1 mm consistent with TI-RADS category 1. A 2nd small nodule that was seen on the prior exam is no longer seen on today exam. There is a stable dominant nodule in the left lobe of the thyroid measuring 8 x 7 x 5 mm, previously measured 7 x 7 x 5 mm consistent with TI-RADS category 4. There is a 2nd, solid hypoechoic nodule in the left lobe of the thyroid measuring 9 x 5 x 4 mm, previously measured 7 x 7 x 4 mm. This is not significantly changed consistent with TI-RADS category 4. Several other smaller cysts are seen in the left lobe of the thyroid. IMPRESSION: Small nodules as detailed above. No follow-up is required based on TI-RADS criteria. Reviewed, Interpreted and Dictated by Jose Garcia III, MD Transcribed by Bonnie Cruz Authenticated and [facility]
== END ==
PROVIDERS: PCP Nurse Practitioner Family; Visit Provider Otolaryngology
DX: E04.1 Nontoxic single thyroid nodule (principal)
CPT/HCPCS: 76536

== ENCOUNTER 2022-06-24 12:34 | Outpatient (CLI) | payer BC, SELFPAY ==
[2022-06-24 15:41] LABS: Free T4 (Free Thyroxine) 0.92 ng/dl (0.78-2.19)
[2022-06-24 15:55] LABS: Thyroid Stimulating Hormone 2.72 uIU/mL (0.465-4.68)
== END 2022-06-24 12:44 | disposition home or self-care (01) ==
LOC: INF 12:35
PROVIDERS: Otolaryngology; PCP Nurse Practitioner Family; Visit Provider Internal Medicine Medical Oncology
DX: E04.1 Nontoxic single thyroid nodule (principal); Z45.2 Encounter for adjustment and management of vascular access device
CPT/HCPCS: 36415; 84439; 84443; 96523; J1642

== ENCOUNTER 2022-07-17 09:50 | Outpatient (CLI) | payer BC, SELFPAY ==
[2022-07-17 09:56] VITALS: BMI 29.3
[2022-07-17 10:21] LABS: Basophils # 0.1 K/mm3 (0-0.2); Basophils % 1.4 % (0.1-2.0); Eosinophils # 0.2 K/mm3 (0.0-0.4); Eosinophils % 2.2 % (0.1-12.0); Hematocrit 40.8 % (37.0-47.0); Hemoglobin 13.7 g/dL (12.2-16.2); Lymphocytes # 1.6 K/mm3 (0.7-4.5); Lymphocytes % 24.9 % (10-50); Mean Corpuscular HGB Conc 33.5 g/dL (31.8-35.4); Mean Corpuscular Volume 89.5 fl (81-99); Mean Platelet Volume 9.1 fl (7.4-10.4); Monocytes # 0.3 K/mm3 (0.1-1.0); Monocytes % 4.2 % (1.7-9.3); Neutrophils # 4.4 K/mm3 (1.8-7.8); Neutrophils % 67.1 % (37.0-80.0); Platelet Count 270 K/mm3 (142-424); Red Blood Count 4.55 M/mm3 (4.20-5.40); Red Cell Distribution Width 13.7 % (11.5-17.5); White Blood Count 6.6 K/mm3 (4.8-10.8)
[2022-07-17 10:24] LABS: Chloride 107 mmol/L (98-107); Sodium 142 mmol/L (136-145)
[2022-07-17 10:25] LABS: Potassium 3.9 mmoL/L (3.5-5.1)
[2022-07-17 10:27] LABS: Alanine Aminotransferase 29 U/L (12-78); Albumin Level 4.5 g/dl (3.5-5.0); Albumin/Globulin Ratio 1.6 (1.1-1.8); Alkaline Phosphatase 81 U/L (38-126); Anion Gap 9.9 mEq/L (5-15); Aspartate Amino Transferase 33 U/L (14-36); Bilirubin,Total 0.6 mg/dl (0.2-1.3); Blood Urea Nitrogen 13 mg/dl (7-17); Carbon Dioxide 29 mmol/L (22.0-30.0); Creatinine Clearance Estimated 135 mL/min (50-200); Estimated Glomerular Filt Rate 103 ml/min (>60); GFR (African American) 125 ML/MIN (>60); Globulin 2.8 g/dL (1.3-3.2); Total Protein,Serum 7.3 g/dl (6.3-8.2)
[2022-07-17 10:28] LABS: Calcium 9.1 mg/dl (8.4-10.2); Glucose 100 mg/dl (74-100)
[2022-07-18 09:28] LABS: CEA <0.6 ng/mL (0.0-4.7)
== END 2022-07-17 10:06 | disposition home or self-care (01) ==
LOC: INF 09:51
PROVIDERS: PCP Nurse Practitioner Family; Visit Provider Internal Medicine Medical Oncology
DX: C34.90 Malignant neoplasm of unspecified part of unspecified bronchus or lung (principal); Z45.2 Encounter for adjustment and management of vascular access device
CPT/HCPCS: 36591; 80053; 82378; 85025; J1642

== ENCOUNTER → 2022-07-29 16:38 | Outpatient (CLI) | payer BC, SELFPAY ==
--- NOTE | 2022-07-29 16:40 | MM_ITS ---
PROCEDURE INFORMATION: Exam: MG Bilateral Screening 3D Mammography Exam date and time: 07/29/2022 4:31 PM Age: 56 years old Clinical indication: Screening examination; Family history of breast cancer in aunt TECHNIQUE: Imaging protocol: Bilateral Screening tomosynthesis and 2D mammography including computer-aided detection (CAD) when performed. COMPARISON: MG MM SCREENING MAMMOGRAM 12/20/2014 3:13 PM FINDINGS: MAMMOGRAPHY: Breast composition: The breasts are heterogeneously dense, which may obscure small masses. Mass: None. Architectural distortion: None. Calcifications: No suspicious calcifications. Asymmetric density: None. Skin thickening: None. Axillary adenopathy: None. IMPRESSION: No mammographic evidence of malignancy. Annual screening is recommended unless otherwise clinically indicated. ASSESSMENT: BI-RADS Category 1: Negative
== END ==
PROVIDERS: PCP Nurse Practitioner Family; Visit Provider Internal Medicine Medical Oncology
DX: Z12.31 Encounter for screening mammogram for malignant neoplasm of breast (principal); Z80.3 Family history of malignant neoplasm of breast
CPT/HCPCS: 77063; 77067

== ENCOUNTER 2022-10-28 10:40 | Outpatient (CLI) | payer BC, SELFPAY ==
[2022-10-28 11:09] LABS: Basophils % 0.6 % (0.1-2.0); Chloride 99 mmol/L (98-107); Eosinophils # 0.2 K/mm3 (0.0-0.4); Eosinophils % 2.2 % (0.1-12.0); Hematocrit 39.3 % (37.0-47.0); Hemoglobin 13.5 g/dL (12.2-16.2); Lymphocytes % 29.4 % (10-50); Mean Corpuscular HGB Conc 34.2 g/dL (31.8-35.4); Mean Corpuscular Hemoglobin 29.9 pg (27.0-31.2); Mean Corpuscular Volume 87.5 fl (81-99); Monocytes # 0.4 K/mm3 (0.1-1.0); Monocytes % 5.3 % (1.7-9.3); Neutrophils # 4.3 K/mm3 (1.8-7.8); Neutrophils % 62.5 % (37.0-80.0); Platelet Count 264 K/mm3 (142-424); Potassium 3.7 mmoL/L (3.5-5.1); Red Cell Distribution Width 13.7 % (11.5-17.5); Sodium 140 mmol/L (136-145); White Blood Count 6.9 K/mm3 (4.8-10.8)
[2022-10-28 11:11] LABS: Bilirubin,Unconjugated 0.4 mg/dL (0.0-1.1); Blood Urea Nitrogen 9 mg/dl (7-17); Estimated Glomerular Filt Rate 103 ml/min (>60); GFR (African American) 124 ML/MIN (>60)
[2022-10-28 11:12] LABS: Alanine Aminotransferase 34 U/L (12-78); Albumin Level 4.2 g/dl (3.5-5.0); Alkaline Phosphatase 81 U/L (38-126); Anion Gap 14.7 mEq/L (5-15); Aspartate Amino Transferase 32 U/L (14-36); Bilirubin,Indirect 0.3 mg/dL (0.0-0.9); Bilirubin,Total 0.3 mg/dl (0.2-1.3); Calcium 9.2 mg/dl (8.4-10.2); Carbon Dioxide 30 mmol/L (22.0-30.0); Chol/HDL Ratio 4.4 (1-3.5); Cholesterol 195 mg/dl (140-200); Glucose 90 mg/dl (74-100); HDL Cholesterol 44 mg/dl (40-60); Total Protein,Serum 6.9 g/dl (6.3-8.2); Triglycerides 144 mg/dl (30-150); VLDL Cholesterol 29 mg/dL (0-40)
[2022-10-28 11:18] LABS: C-Reactive Protein 1.3 mg/L (0-4)
[2022-10-28 11:23] LABS: Direct LDL Cholesterol 116.31 mg/dL (100-129)
[2022-10-28 11:39] LABS: Erythrocyte Sedimentation Rate 16 mm/hr (0-30)
[2022-10-28 11:43] LABS: Thyroid Stimulating Hormone 2.85 uIU/mL (0.465-4.68)
[2022-10-28 12:51] LABS: Free T4 (Free Thyroxine) 0.91 ng/dl (0.78-2.19)
[2022-10-28 16:00] LABS: Uric Acid 5.5 mg/dl (2.5-6.2)
== END 2022-10-28 11:07 | disposition home or self-care (01) ==
LOC: INF 10:41
PROVIDERS: PCP Nurse Practitioner Family; Visit Provider Physician Assistant
DX: R06.00 Dyspnea, unspecified (principal); Z45.2 Encounter for adjustment and management of vascular access device; I10 Essential (primary) hypertension; E78.2 Mixed hyperlipidemia; I51.89 Other ill-defined heart diseases; I63.9 Cerebral infarction, unspecified; G47.33 Obstructive sleep apnea (adult) (pediatric); E11.9 Type 2 diabetes mellitus without complications; Z85.038 Personal history of other malignant neoplasm of large intestine
CPT/HCPCS: 36591; 80048; 80061; 80076; 84439; 84443; 84550; 85025; 85651; 86140; J1642

== ENCOUNTER 2023-01-07 10:21 | Outpatient (CLI) | payer BC, SELFPAY ==
[2023-01-07 10:25] VITALS: BMI 27.4
[2023-01-07 10:46] LABS: Basophils % 0.5 % (0.1-2.0); Eosinophils # 0.2 K/mm3 (0.0-0.4); Eosinophils % 2.9 % (0.1-12.0); Hematocrit 40.1 % (37.0-47.0); Hemoglobin 13.3 g/dL (12.2-16.2); Lymphocytes # 1.9 K/mm3 (0.7-4.5); Lymphocytes % 26.9 % (10-50); Mean Corpuscular HGB Conc 33.2 g/dL (31.8-35.4); Mean Corpuscular Hemoglobin 29.4 pg (27.0-31.2); Mean Corpuscular Volume 88.6 fl (81-99); Mean Platelet Volume 9.9 fl (7.4-10.4); Monocytes # 0.4 K/mm3 (0.1-1.0); Neutrophils # 4.5 K/mm3 (1.8-7.8); Neutrophils % 63.7 % (37.0-80.0); Platelet Count 244 K/mm3 (142-424); Red Blood Count 4.52 M/mm3 (4.20-5.40); Red Cell Distribution Width 13.9 % (11.5-17.5)
[2023-01-07 10:56] LABS: Chloride 105 mmol/L (98-107); Sodium 141 mmol/L (136-145)
[2023-01-07 10:58] LABS: Alanine Aminotransferase 31 U/L (12-78); Blood Urea Nitrogen 17 mg/dl (7-17); Creatinine Clearance Estimated 107 mL/min (50-200); Estimated Glomerular Filt Rate 86 ml/min (>60); GFR (African American) 104 ML/MIN (>60)
[2023-01-07 10:59] LABS: Albumin Level 4.1 g/dl (3.5-5.0); Albumin/Globulin Ratio 1.5 (1.1-1.8); Alkaline Phosphatase 90 U/L (38-126); Aspartate Amino Transferase 33 U/L (14-36); Bilirubin,Total 0.6 mg/dl (0.2-1.3); Calcium 9.3 mg/dl (8.4-10.2); Carbon Dioxide 29 mmol/L (22.0-30.0); Globulin 2.7 g/dL (1.3-3.2); Glucose 141 mg/dl (74-100); Total Protein,Serum 6.8 g/dl (6.3-8.2)
[2023-01-08 10:54] LABS: CEA <0.6 ng/mL (0.0-4.7)
== END 2023-01-07 10:40 | disposition home or self-care (01) ==
LOC: INF 10:22
PROVIDERS: PCP Nurse Practitioner Family; Visit Provider Internal Medicine Medical Oncology
DX: Z45.2 Encounter for adjustment and management of vascular access device (principal); C34.90 Malignant neoplasm of unspecified part of unspecified bronchus or lung; Z85.038 Personal history of other malignant neoplasm of large intestine
CPT/HCPCS: 36591; 80053; 82378; 85025; J1642

== ENCOUNTER → 2023-01-20 07:31 | Outpatient (CLI) | payer BC, SELFPAY ==
--- NOTE | 2023-01-20 07:41 | CT_ITS ---
FINAL REPORT CLINICAL HISTORY: .COLON CANCER COMPARISON: 01/08/2022 FINDINGS: Axial CT images of the chest were obtained with contrast. Coronal reformatted images were also obtained. This study was performed with techniques to keep radiation doses as low as reasonably achievable, (ALARA). Individualized dose reduction techniques using automated exposure control or adjustment of mA and/or KV according to the patients' size were employed. Right jugular port is present. There is an AP window node measuring 19 mm, was 14 mm. There is a stable 11 mm left hilar lymph node. There are several other small mediastinal nodes which are visibly stable. Small axillary nodes are present. No axillary mass or adenopathy is identified. On lung window images, there are calcified granulomas in the right lung. There is a 2 mm lateral left lower lobe nodule seen on image 49 which is stable. Several other small nodules are seen. No localized pulmonary inflammatory process is identified. IMPRESSION: Interval enlargement AP window node which is nonspecific. This may be reactive. Recommend follow-up chest CT or PET/CT. Others stable findings. Reviewed, Interpreted and Dictated by Jose Garcia III, MD Transcribed by Deann Cabrera Authenticated and [facility]
--- NOTE | 2023-01-20 07:42 | CT_ITS ---
FINAL REPORT CLINICAL HISTORY: COLON CANCER COMPARISON: 01/08/2022 FINDINGS: CT OF THE ABDOMEN AND PELVIS WITH CONTRAST Axial CT images of the abdomen and pelvis were obtained after the administration of oral and iv contrast. Coronal reformatted images were also obtained and reviewed.This study was performed with techniques to keep radiation doses as low as reasonably achievable (ALARA). Individualized dose reduction techniques using automated exposure control or adjustment of mA and/or kV according to the patient's size were employed. Abdomen: The lung bases are clear. The heart is normal in size. The liver has an unremarkable appearance, without evidence of mass or biliary ductal dilatation. The spleen is unremarkable. No adrenal mass is present. The pancreas has an unremarkable appearance. There are multiple low-attenuation left renal masses again seen and are stable. These are favored to represent multiple cysts. The aorta is normal in caliber. No new mass or adenopathy identified. No mass or abnormal fluid collection is seen. Pelvis: The appendix is not well-visualized. The urinary bladder is unremarkable. No inflammatory process is seen. Post hysterectomy. There is no evidence of mass or adenopathy. There is no evidence of bowel obstruction. IMPRESSION: Stable probable cysts in the left kidney. No new mass or adenopathy to suggest neoplastic involvement. Reviewed, Interpreted and Dictated by Jose Garcia III, MD Transcribed by Deann Cabrera Authenticated and [facility]
== END ==
LOC: RAD 07:33
PROVIDERS: PCP Nurse Practitioner Family; Visit Provider Internal Medicine Medical Oncology
DX: C18.9 Malignant neoplasm of colon, unspecified (principal)
CPT/HCPCS: 71260; 74177; J1642; Q9967

== ENCOUNTER 2023-02-18 13:28 | Outpatient (CLI) | payer BC, SELFPAY ==
[2023-02-18 13:33] VITALS: BMI 31.1
--- NOTE | 2023-02-18 13:53 | US_ITS ---
FINAL REPORT CLINICAL HISTORY: ABN PET SCAN COMPARISON: 04/10/2022 FINDINGS: THYROID ULTRASOUND: The right lobe of the thyroid gland measures 4.8 x 1.1 x 1.5 cm in size. There are no nodules identified on this examination in the right lobe of the thyroid. The left lobe of the thyroid measures 4.5 x 1.4 x 1.7 cm in size. There are 3 nodules seen in the left lobe of the thyroid. The largest nodule measures 9 x 7 x 7 mm in size, is solid, hypoechoic, and is a TI-RADS 4 category nodule. The second nodule measures 6 x 6 x 5 cm in size, is solid, hypoechoic, with punctate echogenic foci present. This is a TI-RADS 5 category nodule. The third nodule measures 4 x 4 x 3 mm in size, and is a cystic TI-RADS category 1 nodule. The isthmus is unremarkable in appearance and measures 3 mm in thickness. IMPRESSION: No nodules identified on this examination in the right lobe of the thyroid. There are 3 nodules as described in the left lobe of the thyroid gland, 1 of which is a 6 x 6 x 5 mm solid hypoechoic nodule with punctate echogenic foci, a TI-RADS 5 category nodule. Would recommend 6-month follow-up ultrasound for further evaluation. Reviewed, Interpreted and Dictated by Jose Garcia III, MD Transcribed by Janice Abad Authenticated and [facility]
[2023-02-18 15:26] LABS: Free T4 (Free Thyroxine) 1.07 ng/dl (0.78-2.19)
[2023-02-18 15:39] LABS: Thyroid Stimulating Hormone 2.82 uIU/mL (0.465-4.68)
== END 2023-02-18 13:50 | disposition home or self-care (01) ==
LOC: RAD 13:30
PROVIDERS: Nurse Practitioner; PCP Nurse Practitioner Family; Visit Provider Internal Medicine Medical Oncology
DX: E04.1 Nontoxic single thyroid nodule (principal); R93.89 Abnormal findings on diagnostic imaging of other specified body structures; Z45.2 Encounter for adjustment and management of vascular access device
CPT/HCPCS: 36591; 76536; 84439; 84443; J1642

== ENCOUNTER 2023-04-03 09:10 | Day surgery (SDC) | payer BC, SELFPAY ==
[2023-04-02 12:04] VITALS: BMI 27.3
[2023-04-03 09:33] VITALS: BP 127/62; PULSE 59; RESP 18; TEMP 36.5; O2SAT 95
--- NOTE | 2023-04-03 10:17 | P.PNANES_ITS ---
[facility] Disclaimer: The information contained in this section may have been updated after the patient was seen, as this information can be updated by other users. Medical History Anxiety section wound complication History of colon cancer History of COVID-19 History of gastroesophageal reflux (GERD) HLD (hyperlipidemia) HTN (hypertension) ABDI (obstructive sleep apnea) Thyroid disease Thyroid nodule Surgical History H/O colonoscopy History of cardiac cath History of lumpectomy of left breast History of total abdominal hysterectomy Family History Other Cancer Diabetes Heart disease Hypertension Melanoma Social History Smoking Status: Former smoker tobacco type: cigarettes packs per day: 1 second hand exposure: Yes alcohol intake: never counseling provided: none substance use type: denies use current occupational status: unemployed Travel in the last 8 weeks: Inside the [place] household members: spouse housing: house current occupation: [employer] current occupational exposures/hazards: No caffeine: Yes [facility] Anesthesia Checklist Patient Identification Patient Identification: Arm Band Structural Data Admitted From: Home Planned Operative Procedure/s: colonoscopy Consent for Planned Operative Procedure(s) Verified: Yes Verified Documents: Surgical Consent and History and Physical NPO Status Verified Time NPO: 00:00 Additional verifications Anesthesia Reactions: No Hx Blood Transfusions: No Blood Transfusion Reaction: No Airway Assessment Mallampati Score:: Class II C-Spine Mobility Assessed: Yes TMJ Mobility Assessed: Yes Dentition: Good Dentition Neurological Assessment Level of Consciousness: Awake and Alert Anesthesia Plan Anesthesia Risk discussed: Yes Anesthesia Plan: Verified ASA Class: II Anesthesia Type: MAC
[2023-04-03 10:21] VITALS: O2SAT 95
[2023-04-03 10:50] VITALS: BP 113/48; PULSE 65; RESP 17; TEMP 36.2; O2SAT 96
--- NOTE | 2023-04-03 10:51 | P.PCN_ITS ---
Procedure: Date: 04/03/23 Patient Date of :: 1965 Procedure Performed:: Total colonoscopy to terminal ileum with polypectomy using biopsy forceps Indications:: IncisionPatient is a 57-year-old female who had undergone left hemicolectomy by Dr. 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 She has undergone regular subsequent surveillance colonoscopy. Last colonoscopy was on 09/27/2021. At that time she had a tubular adenoma in the transverse colon. She has been followed regularly with oncology at [facility]. Performing Provider:: Jose Nazario MD Referring Provider:: Allie Velez Sedation:: MAC sedation Procedure:: Patient history was obtained and appropriate physical examination was performed. Patient's medications and allergies were reviewed. Informed consent was obtained after explaining the benefits, alternatives, and risks of the procedure including, but not limited to, bleeding, perforation, missed lesions, and adverse reaction to anesthesia medications. Patient was transported to endoscopy procedure room. Patient was connected to monitoring devices. Throughout the procedure the patient's blood pressure, pulse, and oxygen saturations were monitored continuously. Patient identification and planned procedure were verified by the staff. Patient was positioned in lateral decubitus position. Digital anorectal exam wa s performed. Variable stiffness Olympus colonoscope was inserted and advanced under direct visualization to the cecum. Adequacy of the colonic preparation was noted. The colonoscope was advanced a short distance into the terminal ileum. The colonoscope was then slowly withdrawn while carefully examining the color, texture, anatomy, and integrity of the mucosoa circumferentially. Within the rectum retroflexion was performed. Colonoscope was then withdrawn. . . There was some particulate stool in the right colon and some undigested vegetable matter. Thorough trans colonoscopic irrigation and suctioning was performed which allowed for decent visualization. As the colonoscope was withdrawn anastomosis was encountered at approximately 35 to 40 cm from the anal verge. In the distal sigmoid colon there were a couple of possible diminutive polyps removed with cold biopsy forceps. . . Findings:: Colon anastomosis at approximately 40 cm Possible diminutive polyps in the distal sigmoid removed with biopsy forceps Recommendations:: Repeat colonoscopy within 2 years given prior history Complications:: None immediately apparent Estimated blood obtained (mL): 1 Colonoscopy Component Colonoscopy Component Was a colonoscopy performed during today's procedure?: Yes Recommended follow up colonoscopy of at least 10 years?: No If no, follow up colonoscopy recommended in ___ years?: 2 Reason for not recommending >/= 10 yr follow-up interval?: Polyps and history of colon cancer
[2023-04-03 11:00] VITALS: BP 125/60; PULSE 55; RESP 17; O2SAT 100
[2023-04-03 11:10] VITALS: BP 123/62; PULSE 57; RESP 16; O2SAT 100
[2023-04-03 11:21] VITALS: BP 126/65; PULSE 56; RESP 17; O2SAT 99
--- NOTE | 2023-04-03 11:28 | SUR.PHASEII ---
kike deaccessed per Sandrita Craig RN at 2230
== END 2023-04-03 11:30 | disposition home or self-care (01) ==
PROVIDERS: PCP Nurse Practitioner Family; Visit Provider Surgery
PROC: 0DJD8ZZ Inspection of Lower Intestinal Tract, Via Natural or Artificial Opening Endoscopic (ICD-10-PCS; CPT 45380; principal; 2023-04-03 10:30)
DX: Z12.11 Encounter for screening for malignant neoplasm of colon (principal); Z90.49 Acquired absence of other specified parts of digestive tract; Z85.038 Personal history of other malignant neoplasm of large intestine; K63.5 Polyp of colon
CPT/HCPCS: 45380; J1642

== ENCOUNTER 2023-06-24 12:06 | Outpatient (CLI) | payer BC, SELFPAY ==
[2023-06-24] MEDS: SODIUM CHLORIDE 0.9% 10ML FLUSH SYRINGE 10 ML IV (12:37)
== END 2023-06-24 23:59 ==
PROVIDERS: PCP Nurse Practitioner Family; Visit Provider Internal Medicine Medical Oncology
DX: Z45.2 Encounter for adjustment and management of vascular access device (principal)
CPT/HCPCS: 96523; J1642

== ENCOUNTER 2023-07-29 11:02 | Outpatient (CLI) | payer BC, SELFPAY ==
[2023-07-29 11:11] VITALS: BMI 30.3
[2023-07-29 11:34] LABS: Basophils % 0.2 % (0.1-2.0); Eosinophils # 0.1 K/mm3 (0.0-0.4); Eosinophils % 1.7 % (0.1-12.0); Hemoglobin 13.5 g/dL (12.2-16.2); Lymphocytes # 2.3 K/mm3 (0.7-4.5); Lymphocytes % 30.4 % (10-50); Mean Corpuscular HGB Conc 34.6 g/dL (31.8-35.4); Mean Corpuscular Hemoglobin 31.5 pg (27.0-31.2); Mean Corpuscular Volume 91.2 fl (81-99); Mean Platelet Volume 9.7 fl (7.4-10.4); Monocytes # 0.4 K/mm3 (0.1-1.0); Monocytes % 5.6 % (1.7-9.3); Neutrophils # 4.6 K/mm3 (1.8-7.8); Neutrophils % 62.1 % (37.0-80.0); Platelet Count 207 K/mm3 (142-424); Red Blood Count 4.28 M/mm3 (4.20-5.40); Red Cell Distribution Width 13.6 % (11.5-17.5); White Blood Count 7.4 K/mm3 (4.8-10.8)
[2023-07-29] MEDS: SODIUM CHLORIDE 0.9% 10ML FLUSH SYRINGE 10 ML IV (11:45)
[2023-07-29 11:51] LABS: Alanine Aminotransferase 32 U/L (12-78); Albumin Level 4.2 g/dl (3.5-5.0); Albumin/Globulin Ratio 1.7 (1.1-1.8); Alkaline Phosphatase 78 U/L (38-126); Anion Gap 5.9 mEq/L (5-15); Aspartate Amino Transferase 30 U/L (14-36); Bilirubin,Total 0.4 mg/dl (0.2-1.3); Blood Urea Nitrogen 16 mg/dl (7-17); Calcium 9.4 mg/dl (8.4-10.2); Carbon Dioxide 31 mmol/L (22.0-30.0); Chloride 108 mmol/L (98-107); Creatinine Clearance Estimated 118 mL/min (50-200); Estimated Glomerular Filt Rate 86 ml/min (>60); GFR (African American) 104 ML/MIN (>60); Globulin 2.5 g/dL (1.3-3.2); Glucose 100 mg/dl (74-100); Potassium 3.9 mmoL/L (3.5-5.1); Sodium 141 mmol/L (136-145); Total Protein,Serum 6.7 g/dl (6.3-8.2)
[2023-07-30 09:47] LABS: CEA <0.6 ng/mL (0.0-4.7)
== END 2023-07-29 11:15 | disposition home or self-care (01) ==
LOC: INF 11:03
PROVIDERS: Internal Medicine Medical Oncology; PCP Nurse Practitioner Family; Visit Provider Nurse Practitioner Family
DX: C18.9 Malignant neoplasm of colon, unspecified (principal); Z45.2 Encounter for adjustment and management of vascular access device; Z79.899 Other long term (current) drug therapy
CPT/HCPCS: 36591; 80053; 82378; 85025; J1642

== ENCOUNTER 2023-08-04 10:38 | Outpatient (CLI) | payer BC, SELFPAY ==
[2023-08-04 11:06] LABS: Basophils % 0.3 % (0.1-2.0); Eosinophils # 0.2 K/mm3 (0.0-0.4); Eosinophils % 2.7 % (0.1-12.0); Hematocrit 39.7 % (37.0-47.0); Hemoglobin 13.7 g/dL (12.2-16.2); Lymphocytes # 1.8 K/mm3 (0.7-4.5); Lymphocytes % 26.9 % (10-50); Mean Corpuscular HGB Conc 34.6 g/dL (31.8-35.4); Mean Corpuscular Hemoglobin 31.5 pg (27.0-31.2); Mean Corpuscular Volume 91.1 fl (81-99); Monocytes # 0.5 K/mm3 (0.1-1.0); Monocytes % 7.3 % (1.7-9.3); Neutrophils # 4.1 K/mm3 (1.8-7.8); Neutrophils % 62.7 % (37.0-80.0); Platelet Count 215 K/mm3 (142-424); Red Blood Count 4.36 M/mm3 (4.20-5.40); Red Cell Distribution Width 13.8 % (11.5-17.5); White Blood Count 6.5 K/mm3 (4.8-10.8)
[2023-08-04 11:28] LABS: Anion Gap 9.3 mEq/L (5-15); Blood Urea Nitrogen 9 mg/dl (7-17); Calcium 9.2 mg/dl (8.4-10.2); Carbon Dioxide 26 mmol/L (22.0-30.0); Chloride 109 mmol/L (98-107); Estimated Glomerular Filt Rate 103 ml/min (>60); GFR (African American) 124 ML/MIN (>60); Glucose 97 mg/dl (74-100); Potassium 4.3 mmoL/L (3.5-5.1); Sodium 140 mmol/L (136-145)
== END 2023-08-04 23:59 ==
LOC: LAB 10:38
PROVIDERS: PCP Nurse Practitioner Family; Visit Provider Surgery
DX: Z85.038 Personal history of other malignant neoplasm of large intestine (principal); Z87.891 Personal history of nicotine dependence
CPT/HCPCS: 36415; 80048; 85025

== ENCOUNTER 2023-08-24 06:00 | Day surgery (SDC) | payer BC, SELFPAY ==
[2023-08-20 09:59] VITALS: BMI 30.3
[2023-08-24] VITALS (8 sets, daily range): BP systolic 132–144; BP diastolic 66–98; PULSE 65–84; RESP 16–24; TEMP 36.1–36.6; O2SAT 93–98
[2023-08-24] MEDS: LACTATED RINGERS 1000ML 1,000 ML 100 ML IV (06:31)
[2023-08-24] MEDS: CEFAZOLIN SODIUM 1 GM in 0.9 % SODIUM CHLORIDE 50 ML IV (07:18)
[2023-08-24] MEDS: LIDOCAINE 1% 20ML MDV 20 ML (07:33)
[2023-08-24] MEDS: ROPIVACAINE 0.5% 30ML VIAL 150 MG (07:34)
--- NOTE | 2023-08-24 07:38 | EXP.ANES.CKL ---
[facility] Disclaimer: The information contained in this section may have been updated after the patient was seen, as this information can be updated by other users. Medical History Left ventricular hypertrophy Pulmonary hypertension Thyroid nodule History of COVID-19 History of gastroesophageal reflux (GERD) section wound complication Thyroid disease Anxiety HLD (hyperlipidemia) ABDI (obstructive sleep apnea) History of colon cancer HTN (hypertension) Surgical History S/P complete thyroidectomy History of total abdominal hysterectomy History of lumpectomy of left breast H/O colonoscopy History of cardiac cath Family History Other Cancer Diabetes Heart disease Hypertension Melanoma Social History Smoking Status: Former smoker tobacco type: cigarettes packs per day: 1 second hand exposure: Yes alcohol intake: never counseling provided: none substance use type: denies use current occupational status: unemployed Travel in the last 8 weeks: Inside the [place] household members: spouse housing: house current occupation: [employer] current occupational exposures/hazards: No caffeine: Yes [facility] Anesthesia Checklist Patient Identification Patient Identification: Arm Band and Verbal (Name & ) Structural Data Admitted From: Home Planned Operative Procedure/s: Port removal Consent for Planned Operative Procedure(s) Verified: Yes NPO Status Verified Time NPO: 00:00 Additional verifications Anesthesia Reactions: No Hx Blood Transfusions: No Blood Transfusion Reaction: No Airway Assessment Mallampati Score:: Class III C-Spine Mobility Assessed: Yes TMJ Mobility Assessed: Yes Dentition: Good Dentition Neurological Assessment Level of Consciousness: Awake Hx Seizures: No Numbness or tingling in extremities: No Anesthesia Plan Anesthesia Risk discussed: Yes Anesthesia Plan: Verified ASA Class: III Anesthesia Type: General
--- NOTE | 2023-08-24 07:53 | P.OP_ITS ---
Date of procedure: 08/24/23 Pre-op Diagnosis:: Obsolete venous access port Post-op Diagnosis:: Same Procedure performed:: Removal of obsolete venous access port Surgeon:: Jose Nazario MD ADHESIVE BANDAGE MAKING OPERATOR:: Pily Maher Anesthesia: LMA Estimated blood loss (mL): 5 Clinical Note:: Patient presents for removal of venous access port. She is a 57-year-old female whom I have followed in the office for some time and for colonoscopies. She had undergone left hemicolectomy by Dr. Bob in July 2015 at which time she had a liver nodule resected as a wedge resection. She had invasive moderately differentiated adenocarcinoma with 3 of 15 lymph nodes positive and wedge r esection positive. This was a stage Samra (pT3, pN1b, pN1a). I began following her in July 2017. Dr. Bob placed a right subclavian port on 09/13/2015. It has not caused her any issues but it has not been utilized for quite some time. She wished to have it removed. Of note, the patient mention preoperatively that she had an episode of painless rectal bleeding. She had mentioned this to Dr. Gamez. I had performed her last colonoscopy on 04/03/2023 at which time she did have some possible diminutive polyps distally removed. This revealed fragments of hyperplastic polyp. Plan may be to proceed with a follow-up possible flexible sigmoidoscopy although this is most likely internal hemorrhoid bleeding episode. Operative findings:: Well encapsulated noninfected intact venous access port. Operative note:: Patient was taken to the operating room. She was given preoperative intravenous antibiotics. In the operating room she was placed in a supine position. Anesthesia was induced via LMA. The area was prepped and draped in the standard surgical fashion. Local anesthetic was infiltrated superficially. Limited incision was made in the previous scar. Dissection was carried down through subcutaneous tissues to the port. Port was exposed. Capsule around the port was incised. It was freed from its attachments to the port. With traction the port was removed with attached catheter all intact. Hemostasis was achieved with electrocautery. The fibrous capsule was excised with electrocautery. Additional local anesthetic was infiltrated. Deep dermal tissues were reapproximated with several interrupted 2-0 Vicryl. Skin was closed with 4-0 Monocryl in a subcuticular fashion. Dermabond and dressing was applied. When patient returns to the office for postoperative follow-up discussion will be held regarding potential scheduling of flexible sigmoidoscopy. Condition: stable Disposition: PACU Complications:: None immediately apparent
--- NOTE | 2023-08-24 08:02 | P.PNANES_ITS ---
[facility] Anesthesia Record Part I Anesthesia Record I Intake, IV Amount: 600 Hydration: Adequate Estimated blood loss (mL): 2 Urine output (mL): 0 Blood Pressure: 144/77 SaO2: 93 Pulse Rate: 84 Airway Patency: Patent Respiratory Rate: 24 Temperature: 97 F Patient is:: Awake Stable to PACU at:: 07:55
--- NOTE | 2023-08-25 08:10 | EXP.ANES.II ---
[facility] Anesthesia Record Part II Anesthesia Record Part II Discharge Time: 08:25 Destination: Surgical Day Care (OP Surgery) PACU nurse assessment reviewed?: Yes Patient Condition:: Good Anesthesia Complications:: None Swallowing reflex intact?: Yes Airway Patency: Patent Cyanosis?: No Blood Pressure: 138/76 SaO2: 95 Respiratory Rate: 16 Pulse Rate: 70 Temperature: 97.9 F Mental Status: Alert & Oriented Pain level:: 0 Nausea and/or vomitting:: None Intake, IV Amount: 0 Hydration: Adequate
[2023-08-25 08:12] VITALS: BP 138/76; PULSE 70; RESP 16; TEMP 36.6; O2SAT 95
== END 2023-08-24 08:55 | disposition home or self-care (01) ==
PROVIDERS: PCP Nurse Practitioner Family; Visit Provider Surgery
PROC: (CPT 36590; principal; 2023-08-24 07:30)
DX: Z45.2 Encounter for adjustment and management of vascular access device (principal)
CPT/HCPCS: 36590; 96374

== ENCOUNTER 2023-10-29 09:43 | Outpatient (CLI) | payer BC, SELFPAY ==
--- NOTE | 2023-10-29 09:46 | MM_ITS ---
PROCEDURE INFORMATION: Exam: MG Bilateral Screening 3D Mammography Exam date and time: 10/29/2023 9:45 AM Age: 58 years old Clinical indication: Screening examination TECHNIQUE: Imaging protocol: Bilateral Screening tomosynthesis and 2D mammography including computer-aided detection (CAD) when performed. COMPARISON: 1. MG MM DIG SCREENING MAMM BI W/CAD 07/29/2022 4:31 PM 2. MG MM SCREENING MAMMOGRAM 12/20/2014 3:13 PM FINDINGS: MAMMOGRAPHY: Breast composition: The breasts are heterogeneously dense, which may obscure small masses. Mass: None. Architectural distortion: None. Calcifications: No suspicious calcifications. Asymmetric density: None. Skin thickening: None. Axillary adenopathy: None. IMPRESSION: No mammographic evidence of malignancy. Annual screening is recommended unless otherwise clinically indicated. ASSESSMENT: BI-RADS Category 1: Negative
== END 2023-10-29 23:59 | disposition home or self-care (01) ==
LOC: RAD 09:43
PROVIDERS: PCP Nurse Practitioner Family; Visit Provider Internal Medicine Medical Oncology
DX: Z12.31 Encounter for screening mammogram for malignant neoplasm of breast (principal); Z85.038 Personal history of other malignant neoplasm of large intestine
CPT/HCPCS: 77063; 77067

== ENCOUNTER 2023-11-23 08:17 | Outpatient (CLI) | payer BC, SELFPAY ==
--- NOTE | 2023-11-23 08:19 | CA_ITS ---
APPROVED REPORT EXAM: Comprehensive 2D, Doppler, and color-flow Echocardiogram Technical Publications Writer: Adele Navarro RT(R) Ht: 5 ft 6 in Wt: 190lbs BSA: 1.96 BP: 122/76 mmHg Indications: PHTN, SOB, LVH, HTN, hyperlipidemia Echo Enhancing Agent Indication: Endocardial border delineation Agent(s) / Amount(s) Used: Definity 2 cc 2D Dimensions LA Volume 27.90 mL LA Volume Index 14.23 mL/m2 (M/F) 16-34 EF AP4 37.30 % GL Strain -15.5 % M-Mode Dimensions RVDd 2.50 cm (0.9-2.6) LA Diam 3.13 cm (1.9-4.0) LVDd 5.04 cm (3.5-5.7) LVDs 4.06 cm (3.5-5.7) IVSd 0.80 cm (0.6-1.1) PWd 0.76 cm (0.6-1.1) EF (Teich) 39.80% FS 19.40% EDV (Teich) 120.50 mL ESV (Teich) 72.50 mL LV Diastology E Decel Time 193 (160-240 msec) E/A Ratio 0.9 Mitral Valve MV E Max Sebas. 79.0 (40-130 cm/s) MV A Velocity 91.0 (40-130 cm/s) E/A Ratio 0.86 MV PHT 57.0 ms Tricuspid Valve TR P. Velocity 208.00 cm/s RAP Estimate 10.00 mmHg RVSP 27.20 mmHg Left Ventricle The left ventricle is normal size. The left ventricular systolic function is low normal. There is increased LV wall thickness. There is normal LV segmental wall motion. Transmitral Doppler flow pattern suggests impaired LV relaxation. No left ventricle thrombus noted on this study. LVEF is 50%. Right Ventricle The right ventricle is normal size. The right ventricular systolic function is normal. Atria The left atrium size is normal. The right atrium size is normal. There is no Doppler evidence of interatrial shunt. Aortic Valve The aortic valve is mildly thickened. There is no aortic valvular stenosis. Trace aortic regurgitation. Mitral Valve The mitral valve leaflets are mildly thickened. No evidence of mitral valve stenosis. Mild mitral regurgitation. Tricuspid Valve The tricuspid valve leaflets are thin and pliable. Trace tricuspid regurgitation. There is insufficient TR jet to estimate RVSP. Pulmonic Valve The pulmonary valve is normal in structure. Mild pulmonic regurgitation. Great Vessels The aortic root is normal in size. The ascending aorta is normal in size. The IVC is not well-visualized. Pericardium There is no pericardial effusion. Other Information Study Quality: Fair Conclusion Low normal LV systolic function (LVEF 50%). Mild MR, mild PI. Electronically signed by : Isabelle Elise MD 11/23/2023 12:36:26
== END 2023-11-23 23:59 | disposition home or self-care (01) ==
LOC: RT 08:19
PROVIDERS: PCP Nurse Practitioner Family; Visit Provider Nurse Practitioner Family
DX: R06.02 Shortness of breath (principal); I51.89 Other ill-defined heart diseases
CPT/HCPCS: 93306; Q9957

== ENCOUNTER 2024-01-20 07:30 | Outpatient (CLI) | payer BC, SELFPAY ==
--- NOTE | 2024-01-20 07:38 | CT_ITS ---
FINAL REPORT CLINICAL HISTORY: HX OF COLON CANCER COMPARISON: 01/20/2023 FINDINGS: Axial CT images of the chest were obtained with contrast. Coronal reformatted images were also obtained. This study was performed with techniques to keep radiation doses as low as reasonably achievable, (ALARA). Individualized dose reduction techniques using automated exposure control or adjustment of mA and/or KV according to the patient's size were employed. There is an AP window node measuring 15 mm, was 19 mm. Other small mediastinal nodes are stable. There is a stable borderline sized left hilar node measuring 11 mm. Small axillary nodes are also stable. On lung window images, there is a lateral right upper lobe calcified granuloma. The 2 mm lateral left lower lobe nodule best seen on image 43 is stable. There is no new mass or nodule identified. No localized pulmonary inflammatory process is identified. IMPRESSION: Partially improved nonspecific AP window node. Stable borderline mediastinal and left hilar nodes are favored to be reactive. Stable left lower lobe nodule. Reviewed, Interpreted and Dictated by Jose Garcia III, MD Transcribed by Deann Cabrera Authenticated and . [facility]
--- NOTE | 2024-01-20 07:38 | CT_ITS ---
FINAL REPORT CLINICAL HISTORY: HX OF COLON CANCER COMPARISON: 01/20/2023 FINDINGS: CT OF THE ABDOMEN AND PELVIS WITH CONTRAST Axial CT images of the abdomen and pelvis were obtained after the administration of oral and iv contrast. Coronal reformatted images were also obtained and reviewed.This study was performed with techniques to keep radiation doses as low as reasonably achievable (ALARA). Individualized dose reduction techniques using automated exposure control or adjustment of mA and/or kV according to the patient's size were employed. Abdomen: There is fatty infiltration of the liver. The spleen is unremarkable. No adrenal mass is present. The pancreas has an unremarkable appearance. There are multiple low-attenuation left renal masses which are stable and favored to represent cysts. The aorta is normal in caliber. There are moderate vascular calcifications. Several small retroperitoneal nodes are stable and favored to be reactive. No mass or abnormal fluid collection is seen. Pelvis: The appendix is not well-visualized. The urinary bladder is unremarkable. The patient is status post hysterectomy. No inflammatory process is seen. There is no evidence of mass or adenopathy. There is no evidence of bowel obstruction. Postoperative changes near the splenic flexure are stable. IMPRESSION: Stable exam without evidence of metastatic disease. Reviewed, Interpreted and Dictated by Jose Garcia III, MD Transcribed by Deann Cabrera Authenticated and [facility]
[2024-01-20] MEDS: BARIUM SULFATE(READI-CAT2);450ML BOTTLE 450 ML PO (08:02)
[2024-01-20] MEDS: SODIUM CHLORIDE 0.9% 10ML SYR (RAD ONLY) 10 ML IV (08:02)
[2024-01-20] MEDS: IOPAMIDOL-370 (76%);100ML BOTTLE 75 ML IV (08:02)
== END 2024-01-20 23:59 | disposition home or self-care (01) ==
LOC: RAD 07:31
PROVIDERS: PCP Nurse Practitioner Family; Visit Provider Internal Medicine Medical Oncology
DX: C18.6 Malignant neoplasm of descending colon (principal); Z87.891 Personal history of nicotine dependence
CPT/HCPCS: 71260; 74178; Q9967

== ENCOUNTER 2024-01-27 09:46 | Outpatient (CLI) | payer BC, SELFPAY ==
[2024-01-27 09:51] VITALS: BMI 30.8
--- NOTE | 2024-01-27 09:53 | PC.NURSE ---
Pt presents today for blood to be drawn for labs prior to md appt with oncology.Pt has had pac removed since her last visit, therefore venipuncture performed to pt's lt ac x 2 sticks using a butterfly needle access per Amelia Stevens RN, blood drawn. Needle withdrawn and site secured with 2x2 gauze and coban. Specimens sent to lab for analysis. pt able to ambulate to clinic for appt.
[2024-01-27 10:15] LABS: Basophils # 0.1 K/mm3 (0-0.2); Basophils % 0.6 % (0.1-2.0); Eosinophils # 0.2 K/mm3 (0.0-0.4); Eosinophils % 1.9 % (0.1-12.0); Hematocrit 45.5 % (37.0-47.0); Hemoglobin 14.7 g/dL (12.2-16.2); Lymphocytes # 1.8 K/mm3 (0.7-4.5); Lymphocytes % 19.6 % (10-50); Mean Corpuscular HGB Conc 32.3 g/dL (31.8-35.4); Mean Corpuscular Hemoglobin 30.3 pg (27.0-31.2); Mean Corpuscular Volume 93.8 fl (81-99); Mean Platelet Volume 9.6 fl (7.4-10.4); Monocytes # 0.5 K/mm3 (0.1-1.0); Monocytes % 4.9 % (1.7-9.3); Neutrophils # 6.8 K/mm3 (1.8-7.8); Platelet Count 237 K/mm3 (142-424); Red Blood Count 4.85 M/mm3 (4.20-5.40); Red Cell Distribution Width 14.4 % (11.5-17.5); White Blood Count 9.4 K/mm3 (4.8-10.8)
[2024-01-27 10:22] LABS: Albumin Level 4.5 g/dl (3.5-5.0); Chloride 105 mmol/L (98-107); Potassium 4.1 mmoL/L (3.5-5.1); Sodium 140 mmol/L (136-145)
[2024-01-27 10:25] LABS: Alanine Aminotransferase 42 U/L (12-78); Albumin/Globulin Ratio 1.6 (1.1-1.8); Alkaline Phosphatase 89 U/L (38-126); Anion Gap 11.1 mEq/L (5-15); Aspartate Amino Transferase 39 U/L (14-36); Bilirubin,Total 0.7 mg/dl (0.2-1.3); Blood Urea Nitrogen 13 mg/dl (7-17); Calcium 9.4 mg/dl (8.4-10.2); Carbon Dioxide 28 mmol/L (22.0-30.0); Creatinine Clearance Estimated 104 mL/min (50-200); Estimated Glomerular Filt Rate 73 ml/min (>60); GFR (African American) 89 ML/MIN (>60); Globulin 2.9 g/dL (1.3-3.2); Glucose 117 mg/dl (74-100); Total Protein,Serum 7.4 g/dl (6.3-8.2)
[2024-01-28 09:13] LABS: CEA <0.6 ng/mL (0.0-4.7)
== END 2024-01-27 10:06 | disposition home or self-care (01) ==
LOC: INF 09:47
PROVIDERS: PCP Nurse Practitioner Family; Visit Provider Internal Medicine Medical Oncology
DX: C18.9 Malignant neoplasm of colon, unspecified (principal)
CPT/HCPCS: 36415; 80053; 82378; 85025

== ENCOUNTER 2024-07-28 09:13 | Outpatient (CLI) | payer BC, SELFPAY ==
[2024-07-28 09:22] VITALS: BMI 31.6
--- NOTE | 2024-07-28 09:23 | PC.NURSE ---
0923-kandice woodson collected labs via venipuncture stick in right ac with butterfly needle;pt to oncology appt.
--- NOTE | 2024-07-28 09:34 | XR_ITS ---
FINAL REPORT CLINICAL HISTORY: Shortness of breath COMPARISON: None FINDINGS: PA and lateral views of the chest are obtained. There is no prior exam for comparison. The cardiac and mediastinal silhouettes are within normal limits. The lungs are clear, other than changes of remote granulomatous disease. There is no pleural effusion, pneumothorax, or acute osseous abnormality. IMPRESSION: No radiographic evidence of acute cardiac or pulmonary disease. Reviewed, Interpreted and Dictated by Carmen Carcamo MD Transcribed by Janice Abad Authenticated and [facility]
[2024-07-28 09:37] LABS: Basophils % 0.3 % (0.1-2.0); Eosinophils # 0.2 K/mm3 (0.0-0.4); Eosinophils % 2.3 % (0.1-12.0); Hematocrit 38.2 % (37.0-47.0); Hemoglobin 13.7 g/dL (12.2-16.2); Lymphocytes # 1.7 K/mm3 (0.7-4.5); Lymphocytes % 24.2 % (10-50); Mean Corpuscular HGB Conc 35.9 g/dL (31.8-35.4); Mean Corpuscular Hemoglobin 30.8 pg (27.0-31.2); Mean Corpuscular Volume 85.8 fl (81-99); Mean Platelet Volume 11.8 fl (7.4-10.4); Monocytes # 0.5 K/mm3 (0.1-1.0); Monocytes % 6.9 % (1.7-9.3); Neutrophils # 4.7 K/mm3 (1.8-7.8); Neutrophils % 65.7 % (37.0-80.0); Platelet Count 231 K/mm3 (142-424); Red Blood Count 4.45 M/mm3 (4.20-5.40); Red Cell Distribution Width 12.7 % (11.5-17.5); White Blood Count 7.1 K/mm3 (4.8-10.8)
[2024-07-28 09:45] LABS: Albumin Level 4.4 g/dl (3.5-5.0); Chloride 104 mmol/L (98-107); Sodium 142 mmol/L (136-145)
[2024-07-28 09:46] LABS: Potassium 3.6 mmoL/L (3.5-5.1)
[2024-07-28 09:48] LABS: Alanine Aminotransferase 43 U/L (12-78); Anion Gap 11.6 mEq/L (5-15); Aspartate Amino Transferase 36 U/L (14-36); Blood Urea Nitrogen 8 mg/dl (7-17); Carbon Dioxide 30 mmol/L (22.0-30.0); Creatinine Clearance Estimated 106 mL/min (50-200); Estimated Glomerular Filt Rate 73 ml/min (>60); GFR (African American) 89 ML/MIN (>60)
[2024-07-28 09:49] LABS: Albumin/Globulin Ratio 1.6 (1.1-1.8); Alkaline Phosphatase 82 U/L (38-126); Bilirubin,Total 0.6 mg/dl (0.2-1.3); Calcium 9.3 mg/dl (8.4-10.2); Globulin 2.7 g/dL (1.3-3.2); Glucose 112 mg/dl (74-100); Total Protein,Serum 7.1 g/dl (6.3-8.2)
[2024-07-28] MEDS: ALBUTEROL 0.083% 2.5 MG/3 ML NEB IH (10:37)
[2024-07-29 08:14] LABS: CEA <0.6 ng/mL (0.0-4.7)
== END 2024-07-28 23:59 | disposition home or self-care (01) ==
PROVIDERS: PCP Nurse Practitioner Family; Visit Provider Internal Medicine Medical Oncology
DX: R06.02 Shortness of breath (principal); Z85.038 Personal history of other malignant neoplasm of large intestine
CPT/HCPCS: 36415; 71046; 80053; 82378; 85025; 94060; 94618; 94726; 94729; J7613

== ENCOUNTER 2024-10-27 08:50 | Outpatient (CLI) | payer BC, SELFPAY ==
[2024-10-27 09:16] LABS: Basophils % 0.5 % (0.1-2.0); Eosinophils # 0.2 Kmm3 (0.0-0.4); Eosinophils % 2.1 % (0.1-12.0); Hematocrit 43.3 % (37.0-47.0); Hemoglobin 15.1 g/dL (12.2-16.2); Immature Granulocytes # 0.02 10^3uL; Immature Granulocytes % 0.2 %; Lymphocytes % 24.1 % (10-50); Mean Corpuscular HGB Conc 34.9 g/dL (31.8-35.4); Mean Corpuscular Hemoglobin 30.6 pg (27.0-31.2); Mean Corpuscular Volume 87.8 fl (81-99); Mean Platelet Volume 11.7 fl (7.4-10.4); Monocytes # 0.6 K/mm3 (0.1-1.0); Monocytes % 7.6 % (1.7-9.3); Neutrophils # 5.5 K/mm3 (1.8-7.8); Neutrophils % 65.5 % (37.0-80.0); Nucleated Red Blood Cells # 0 10^3/uL; Nucleated Red Blood Cells % 0 %; Platelet Count 235 K/mm3 (142-424); Red Blood Count 4.93 M/mm3 (4.20-5.40); Red Cell Distribution Width 12.7 % (11.5-17.5); White Blood Count 8.4 K/mm3 (4.8-10.8)
[2024-10-27 09:31] LABS: Hemoglobin A1C 5.4 % (4.0-6.0)
[2024-10-27 10:05] LABS: Alanine Aminotransferase 36 U/L (12-78); Albumin Level 4.6 g/dl (3.5-5.0); Alkaline Phosphatase 65 U/L (38-126); Anion Gap 12.2 mEq/L (5-15); Aspartate Amino Transferase 36 U/L (14-36); Bilirubin,Direct 0.2 mg/dl (0.0-0.4); Bilirubin,Indirect 0.4 mg/dL (0.0-0.9); Bilirubin,Total 0.6 mg/dl (0.2-1.3); Bilirubin,Unconjugated 0.4 mg/dL (0.0-1.1); Blood Urea Nitrogen 13 mg/dl (7-17); Calcium 9.9 mg/dl (8.4-10.2); Carbon Dioxide 28 mmol/L (22.0-30.0); Chloride 104 mmol/L (98-107); Cholesterol 157 mg/dl (140-200); Estimated Glomerular Filt Rate 85 ml/min (>60); GFR (African American) 103 ML/MIN (>60); Glucose 100 mg/dl (74-100); HDL Cholesterol 39 mg/dl (40-60); Magnesium 1.8 mg/dl (1.6-2.3); Potassium 4.2 mmoL/L (3.5-5.1); Sodium 140 mmol/L (136-145); Total Protein,Serum 6.9 g/dl (6.3-8.2); Triglycerides 186 mg/dl (30-150); VLDL Cholesterol 37 mg/dL (0-40)
[2024-10-27 10:16] LABS: Direct LDL Cholesterol 96.52 mg/dL (100-129)
== END 2024-10-27 23:59 | disposition home or self-care (01) ==
LOC: LAB 08:51
PROVIDERS: PCP Nurse Practitioner Family; Visit Provider Physician Assistant
DX: I11.9 Hypertensive heart disease without heart failure (principal); R06.02 Shortness of breath; Z98.890 Other specified postprocedural states; Z90.89 Acquired absence of other organs; Z85.038 Personal history of other malignant neoplasm of large intestine; G47.33 Obstructive sleep apnea (adult) (pediatric); E78.5 Hyperlipidemia, unspecified
CPT/HCPCS: 36415; 80048; 80061; 80076; 83036; 83735; 85025

== ENCOUNTER 2025-01-26 09:17 | Outpatient (CLI) | payer BC, SELFPAY ==
--- NOTE | 2025-01-26 09:26 | PC.NURSE ---
0926-collected labs via venipuncture stick in left ac with butterfly needle pt to oncology appt.
[2025-01-26 09:33] LABS: Hematocrit 40.7 % (37.0-47.0); Hemoglobin 13.9 g/dL (12.2-16.2); Immature Granulocytes % 0.2 %; Mean Corpuscular HGB Conc 34.2 g/dL (31.8-35.4); Mean Corpuscular Hemoglobin 29.9 pg (27.0-31.2); Mean Corpuscular Volume 87.5 fl (81-99); Nucleated Red Blood Cells % 0 %; Platelet Count 230 K/mm3 (142-424); Red Blood Count 4.65 M/mm3 (4.20-5.40); Red Cell Distribution Width-SD 39.9 fL; White Blood Count 8.2 K/mm3 (4.8-10.8)
--- OUTSIDE RECORDS SUMMARY | 2025-01-26 09:35 | XMS_ITS | Clinical Summary ---
Author Organization [employer] ([place], [place], [place], [place]) Address [address] [place] [address] Care Team Providers Care Teacher Dramatics Name Role Phone Unavailable Primary Care Provider Unavailabl e Social History Tobacco Use Types Packs/Day Years Used Date Smoking Tobacco: Never Assessed Food Insecurity Answer Date Recorded Food run out past 12 months Not on file 06/08 Food did not last past 12 months Not on file 06/26/2023 Employment Answer Date Recorded Help finding and keeping a job Not on file 0 06/26/2023 Family and Community Support Answer Colin e Recorded Help with Day to Day Activities Not on file 06/26/2023 Feeling Lonely or Isolated Not on file 06/26 Educational Attainment Answer Date Bp rded Speak language other than Hungarian at home Not on file 06/26/2023 Want help with school or training Not on file 06/26/2023 Substance Use Answer Date Recorded Used prescription meds for non-medical reasons N ot on file 06/26/2023 Used illegal drugs past 12 months Not on file 06/26/2023 Comments Unknown Sex and Gender Information Value Date Recorded Sex Assigned at Not on file Legal Sex Female 6:01 PM CDT Gender Identity Not on file Sexual Orientation Not on file Plan of Treatment Health Maintenance Due Date Last Done Comments CT Colonography 1965 Colonoscopy 1965 Colorectal Cancer Screening 1965 FOBT/FIT 1964 Fit-DNA (Cologuard) 1965 Sigmoidoscopy 1965 Depression Screening (12+) 1976 Tobacco Cessation Counseling and Screening (12+) 1976 HIV Screening 10/16/1979 Hepatitis C Screening 1982 DTAP/TDAP/TD VACCINES (1 - Tdap) 10/16/1983 Pneumococcal 50+ years (1 of 2 - PCV) 10/16/1983 Pap Smear 1985 Breast Cancer Screening 2004 Lipid Panel 2009 Shingles Vaccine (Zoster) (1 of 2) 2014 COVID-19 VACCINE ( season) 2024 03/25/2021, 07/10/2020, 06/19/2020 Influenza Vaccine (#1) 2025 03/20/2022
--- OUTSIDE RECORDS SUMMARY | 2025-01-26 09:35 | XMS_ITS | Referral Summary ---
Author Organization [employer] ([place], [place], [place], [place]) Address [address] [place] [address] Care Team Providers Care Orthopaedic Doctor Name Role Phone Unavailable Primary Care Provider [...] on file 06/26 Educational Attainment Answer Date Pb rded Speak language other than Frisian at home Not on file 06/26/2023 Want [...] Orientation Not on file Plan of Treatment Not on file
[2025-01-26 09:48] LABS: Alanine Aminotransferase 40 U/L (12-78); Albumin Level 4.5 g/dl (3.5-5.0); Albumin/Globulin Ratio 1.6 (1.1-1.8); Alkaline Phosphatase 85 U/L (38-126); Anion Gap 15.0 mEq/L (5-15); Aspartate Amino Transferase 39 U/L (14-36); Bilirubin,Total 0.5 mg/dl (0.2-1.3); Blood Urea Nitrogen 13 mg/dl (7-17); Calcium 9.5 mg/dl (8.4-10.2); Carbon Dioxide 26 mmol/L (22.0-30.0); Chloride 104 mmol/L (98-107); Creatinine,Serum 0.80 mg/dl (0.52-1.04); Estimated Glomerular Filt Rate 73 ml/min (>60); GFR (African American) 89 ML/MIN (>60); Globulin 2.9 g/dL (1.3-3.2); Glucose 130 mg/dl (74-100); Potassium 4.0 mmoL/L (3.5-5.1); Sodium 141 mmol/L (136-145); Total Protein,Serum 7.4 g/dl (6.3-8.2)
[2025-01-27 12:19] LABS: CEA <0.6 ng/mL (0.0-4.7)
== END 2025-01-26 09:30 | disposition home or self-care (01) ==
LOC: LAB 09:18 → INF 09:19
PROVIDERS: PCP Nurse Practitioner Family; Visit Provider Internal Medicine Medical Oncology
DX: C18.9 Malignant neoplasm of colon, unspecified (principal); C78.7 Secondary malignant neoplasm of liver and intrahepatic bile duct
CPT/HCPCS: 36415; 80053; 82378; 85025

== ENCOUNTER 2025-02-08 08:13 | Outpatient (CLI) | payer BC, SELFPAY ==
--- NOTE | 2025-02-08 08:30 | MM_ITS ---
PROCEDURE INFORMATION: Exam: MG Bilateral Screening 3D Mammography Exam date and time: 02/08/2025 8:26 AM Age: 59 years old Clinical indication: Screening. Paternal aunts and paternal grandmother had breast cancer. TECHNIQUE: Imaging protocol: Bilateral Screening tomosynthesis and 2D mammography including computer-aided detection (CAD) when performed. COMPARISON: 1. MG MM DIG SCREENING MAMM BI W/CAD 10/29/2023 9:45 AM 2. MG MM DIG SCREENING MAMM BI W/CAD 07/29/2022 4:31 PM 3. MG MM SCREENING MAMMOGRAM 12/20/2014 3:13 PM FINDINGS: MAMMOGRAPHY: Breast composition: The breasts are heterogeneously dense, which may obscure small masses. Mass: None. Architectural distortion: None. Calcifications: No suspicious calcifications. Asymmetric density: None. Skin thickening: None. Axillary adenopathy: None. IMPRESSION: No mammographic evidence of malignancy. Annual screening is recommended unless otherwise clinically indicated. ASSESSMENT: BI-RADS Category 1: Negative.
--- OUTSIDE RECORDS SUMMARY | 2025-02-08 08:32 | XMS_ITS | Clinical Summary ---
Author Organization [employer] ([place], [place], [place], [place]) Address [address] [place] [address] Care Team Providers Care Body Die Maker Name Role Phone Unavailable Primary Care Provider [...] Date Pb rded Speak language other than Serbian at home Not on file 06/26/2023 Want [...] of 2) 2014 COVID-19 VACCINE ( season) 2025 03/25/2021, 07/10/2020, 06/19/2020 Influenza Vaccine (#1) 2025 03/20/2022
--- OUTSIDE RECORDS SUMMARY | 2025-02-08 08:32 | XMS_ITS | Referral Summary ---
Author Organization [employer] ([place], [place], [place], [place]) Address [address] [place] [address] Care Team Providers Care Pharmaceutical Operator Name Role Phone Unavailable Primary Care Provider [...] Date Pb rded Speak language other than Nauruan at home Not on file 06/26/2023 Want [...]
[2025-02-08] MEDS: SODIUM CHLORIDE 0.9% 10ML SYR (RAD ONLY) 10 ML IV (09:03)
[2025-02-08] MEDS: IOPAMIDOL-370 (76%);100ML BOTTLE 75 ML IV (09:03)
--- NOTE | 2025-02-08 09:30 | CT_ITS ---
FINAL REPORT TECHNIQUE: After the administration of oral and intravenous contrast, axial images were obtained through the abdomen and pelvis by computed tomography. The study was performed with techniques to keep radiation dose as low as reasonably achievable, (ALARA). Individual dose reduction techniques using automated exposure control or adjustment of mA and/or kV according to the patient's size were employed. CLINICAL HISTORY: f/u colon cancer COMPARISON: 01/20/2024 FINDINGS: Abdomen: The lung bases are clear. There is moderate fatty infiltration of the liver. The gallbladder is present. The spleen, pancreas, and adrenals are unremarkable. There are mild couple benign-appearing cysts in the lower pole of the left kidney, stable. The aorta is normal in caliber. There is no free fluid or adenopathy. There are postoperative changes in the splenic flexure of the colon. Pelvis: The appendix is not identified. Calcified phleboliths are seen in the floor of the pelvis. The urinary bladder is unremarkable. There is no free fluid or adenopathy. IMPRESSION: Fatty liver. Postoperative changes in the splenic flexure of the colon. No new mass or adenopathy. Reviewed, Interpreted and Dictated by Benji Morocho MD Transcribed by Bonnie Cruz Authenticated and [facility]
--- NOTE | 2025-02-08 09:30 | CT_ITS ---
FINAL REPORT TECHNIQUE: Routine axial images were obtained from the lung apices to below the diaphragm following IV contrast administration. Individualized dose reduction techniques using automated exposure control or adjustment of the mA and/or kV according to the patient size were employed. CLINICAL HISTORY: f/u colon cancer COMPARISON: 01/20/2024 FINDINGS: There are enlarged axillary lymph nodes with a node measuring 1.8 cm. An AP window lymph node measuring 1.8 cm is larger than on the previous exam, well-seen on image 27 of series 4. No pleural or pericardial effusion is seen. An azygos pseudo lobe is noted. Left upper lobe calcified granuloma is seen. IMPRESSION: Increasing axillary and AP window adenopathy could be reactive or neoplastic.. Reviewed, Interpreted and Dictated by Benji Morocho MD Transcribed by Deann Cabrera Authenticated and . [facility]
== END 2025-02-08 23:59 | disposition home or self-care (01) ==
LOC: RAD 08:13
PROVIDERS: PCP Nurse Practitioner Family; Visit Provider Internal Medicine Medical Oncology
DX: Z12.31 Encounter for screening mammogram for malignant neoplasm of breast (principal); C18.9 Malignant neoplasm of colon, unspecified; C78.7 Secondary malignant neoplasm of liver and intrahepatic bile duct; K76.0 Fatty (change of) liver, not elsewhere classified; R59.0 Localized enlarged lymph nodes; R92.333 Mammographic heterogeneous density, bilateral breasts; Z98.890 Other specified postprocedural states
CPT/HCPCS: 71260; 74177; 77063; 77067; Q9967

== ENCOUNTER 2025-02-22 08:45 | Outpatient (CLI) | payer BC, SELFPAY ==
--- NOTE | 2025-02-22 09:00 | US_ITS ---
FINAL REPORT CLINICAL HISTORY: enlarged lymphnode FINDINGS: Limited sonographic images were obtained of the soft tissues in the right axilla at the area of reported palpable abnormality. There are multiple normal-appearing lymph nodes in the deep right axilla. Largest measures up to 17 x 7 mm with normal morphology. No evidence of mass. IMPRESSION: Normal-appearing lymph nodes. Reviewed, Interpreted and Dictated by Goe Hill MD Transcribed by Deann Cabrera Authenticated and [facility]
--- NOTE | 2025-02-22 09:30 | US_ITS ---
FINAL REPORT CLINICAL HISTORY: enlarged lymphnode FINDINGS: Limited sonographic images were obtained of the soft tissues in the left axilla at the area of reported palpable abnormality. There are multiple normal-appearing lymph nodes in the deep left axilla. Largest measures up to 16 x 8 mm with normal morphology. No evidence of mass. IMPRESSION: Normal-appearing lymph nodes. Reviewed, Interpreted and Dictated by Geo Hill MD Transcribed by Deann Cabrera Authenticated and . [facility]
== END 2025-02-22 23:59 | disposition home or self-care (01) ==
LOC: RAD 08:46
PROVIDERS: PCP Nurse Practitioner Family; Visit Provider Internal Medicine Medical Oncology
DX: R59.9 Enlarged lymph nodes, unspecified (principal)
CPT/HCPCS: 76882

== ENCOUNTER 2025-03-17 06:31 | Day surgery (SDC) | payer BC, SELFPAY ==
[2025-03-14 12:14] VITALS: BMI 30.7
--- NOTE | 2025-03-17 06:23 | EXP.GEN.HP ---
HPI HPI HPI: Patient presents for follow-up colonoscopy due to her history of metastatic colon cancer to the liver. In July 2015 she underwent left hemicolectomy with a wedge resection of the liver nodule by Dr. Bob. Pathology revealed invasive moderately differentiated adenocarcinoma with 3 of 15 positive lymph nodes as a stage Samra (pT3, pN1b, pM1a). She did undergo chemotherapy. I had performed colonoscopies on her and her last colonoscopy was 04/03/2023 which revealed only hyperplastic polyps. Colonoscopy prior to that on 09/27/2021 revealed transverse colon tubular adenoma. She has been followed regularly by oncology. [facility] Disclaimer: The information contained in this section may have been updated after the patient was seen, as this information can be updated by other users. Medical History Asthma Left ventricular hypertrophy Pulmonary hypertension Thyroid nodule History of COVID-19 History of gastroesophageal reflux (GERD) section wound complication Thyroid disease Anxiety HLD (hyperlipidemia) ABDI (obstructive sleep apnea) History of colon cancer HTN (hypertension) Surgical History S/P complete thyroidectomy History of total abdominal hysterectomy X2 History of lumpectomy of left breast H/O colonoscopy History of cardiac cath Family History Other Cancer Diabetes Heart disease Hypertension Melanoma Social History Smoking Status: Former smoker tobacco type: cigarettes packs per day: 1 second hand exposure: No alcohol intake: never counseling provided: none substance use type: denies use current occupational status: unemployed Travel in the last 8 weeks?: Inside the [place] household members: spouse housing: house current occupation: [employer] current occupational exposures/hazards: No caffeine: Yes Other Medical History Have you received the Flu Vaccine for this season: Yes Have you received the Pneumonia Vaccine: No Review of Systems Review of Systems Review of systems:: pertinent systems reviewed and negative unless documented below Meds Home Medications and Allergies Home Medications ?Medication ?Instructions ?Recorded ?Confirmed ?Type alprazolam 0.5 mg tablet (Xanax) 0.5 mg PO BID PRN anxiety 08/31/17 03/14/25 History levothyroxine 100 mcg tablet 100 mcg PO DAILY 07/28/24 03/14/25 History albuterol 90 mcg-budesonide 80 2 inh inhalation .q6 PRN shortness 09/08/24 03/14/25 Rx mcg/actuation HFA aerosol inhaler of breath or wheezing #10.7 grams (Airsupra) bisoprolol fumarate 5 mg tablet 5 mg PO BID Hypertension #180 tabs 11/01/24 03/14/25 Rx minoxidil 2.5 mg tablet 2.5 mg PO DAILY #90 tabs 11/01/24 03/14/25 Rx omeprazole 20 mg capsule,delayed 20 mg PO DAILY GERD #90 caps 11/01/24 03/14/25 Rx release rosuvastatin 10 mg tablet 10 mg PO DAILY #90 tabs 11/22/24 03/14/25 Rx sodium,potassium,mag sulfates 17.5 See Rx Instructions PO .COMPLEX 01/19/25 03/14/25 Rx gram-3.13 gram-1.6 gram oral soln #354 mL (Suprep Bowel Prep Kit) New Prescriptions to Start Prescriptions: Allergies Allergy/AdvReac Type Severity Reaction Status Date / Time No Known Allergies Allergy Verified 03/14/25 12:10 Exam Data for Last 24 hours I & O for Last 24 hours: Intake & Output 03/14/25 03/15/25 03/16/25 03/17/25 11:59 11:59 11:59 11:59 Weight 190 lb Constitutional Constitutional: no acute distress *Routine HEENT Exam Head: Present normocephalic Eye: Present EOMI and PERRL ENT: Present mucous membranes moist *Routine Neck Exam Neck: Present supple; Absent lymphadenopathy *Routine Respiratory Exam Respiratory: Present CTA bilaterally *Routine Cardiovascular Exam Cardiovascular: Present RRR *Routine Abdominal Exam Abdominal: Present soft and normoactive bowel sounds; Absent tenderness *Routine Rectal Exam Rectal:: deferred *Routine Genitalia Exam Genitalia:: deferred *Routine Extremities Exam Extremities: Absent cyanosis, clubbing or edema *Routine Skin Exam Skin: Present warm; Absent rash *Routine Neurological Exam Neurological: Present alert and oriented X3 Assessment and Plan *Assessment and plan (1) Colon cancer metastasized to liver: Status: Inactive Category: Medical Code(s): C18.9 - Malignant neoplasm of colon, unspecified; C78.7 - Secondary malignant neoplasm of liver and intrahepatic bile duct Plan Proceed with colonoscopy.
[2025-03-17 07:08] VITALS: BP 146/80; PULSE 52; RESP 16; TEMP 36.4; O2SAT 100; BMI 30.7
[2025-03-17] MEDS: LACTATED RINGERS 1000ML 1,000 ML 50 ML IV (07:22)
--- NOTE | 2025-03-17 07:34 | P.PNANES_ITS ---
[facility] Disclaimer: The information contained in this section may have been updated after the patient was seen, as this information can be updated by other users. Medical History Asthma Left ventricular hypertrophy Pulmonary hypertension Thyroid nodule History of COVID-19 History of gastroesophageal reflux (GERD) section wound complication Thyroid disease Anxiety HLD (hyperlipidemia) ABDI (obstructive sleep apnea) History of colon cancer HTN (hypertension) Surgical History S/P complete thyroidectomy History of total abdominal hysterectomy History of lumpectomy of left breast H/O colonoscopy History of cardiac cath Family History Other Cancer Diabetes Heart disease Hypertension Melanoma Social History Smoking Status: Former smoker tobacco type: cigarettes packs per day: 1 second hand exposure: No alcohol intake: never counseling provided: none substance use type: denies use current occupational status: unemployed Travel in the last 8 weeks?: Inside the [place] household members: spouse housing: house current occupation: [employer] current occupational exposures/hazards: No caffeine: Yes Have you lived/traveled outside US in past 30 days?: No Contact w/someone who lives/traveled outside US past 30 days?: No Exposure to someone with infectious disease in past 14 days?: No Do you have a fever (greater than 100.4 F or 38 C)?: No Have you tested positive for COVID-19?: No Exposed to someone with COVID-19 in past 14 days?: No Do you have a sore throat?: No Do you have a cough?: No Do you have any weakness?: No Are you experiencing any nausea/vomitting?: No Do you have any diarrhea?: No Are you experiencing any unusual bleeding?: No Do you have any muscle aches/pain?: No Do you have any abdominal pain?: No Are you experiencing loss of taste or smell?: No [facility] Anesthesia Checklist Patient Identification Patient Identification: Arm Band and Verbal (Name & ) Structural Data Admitted From: Home Planned Operative Procedure/s: colonscopy Consent for Planned Operative Procedure(s) Verified: Yes Verified Documents: Surgical Consent and History and Physical NPO Status Verified Time NPO: 00:00 Additional verifications Anesthesia Reactions: No Hx Blood Transfusions: No Blood Transfusion Reaction: No Previous Colonoscopy: Yes Airway Assessment Mallampati Score:: Class III Dentition: Good Dentition Neurological Assessment Level of Consciousness: Awake, Alert and Appropriate Hx Seizures: No Numbness or tingling in extremities: No Anesthesia Plan Anesthesia Risk discussed: Yes Anesthesia Plan: Verified ASA Class: II Anesthesia Type: MAC
--- NOTE | 2025-03-17 07:57 | P.PCN_ITS ---
Procedure: Date: 03/17/25 Patient Date of :: 1965 Procedure Performed:: Total colonoscopy to terminal ileum with polypectomy using biopsy forceps and cold snare . Indications:: Patient presents for follow-up colonoscopy due to her history of metastatic colon cancer to the liver. In July 2015 she underwent left hemicolectomy with a wedge resection of the liver nodule by Dr. Bob. Pathology revealed invasive moderately differentiated adenocarcinoma with 3 of 15 positive lymph nodes as a stage Samra (pT3, pN1b, pM1a). She did undergo chemotherapy. I had performed colonoscopies on her and her last colonoscopy was 04/03/2023 which revealed only hyperplastic polyps. Colonoscopy prior to that on 09/27/2021 revealed transverse colon tubular adenoma. She has been followed regularly by oncology. . Performing Provider:: Jose Nazario MD Referring Provider:: Allie Velez Sedation:: MAC sedation Procedure:: Patient history was obtained and appropriate physical examination was performed. Patient's medications and allergies were reviewed. Informed consent was obtained after explaining the benefits, alternatives, and risks of the procedure including, but not limited to, bleeding, perforation, missed lesions, and adverse reaction to anesthesia medications. Patient was transported to endoscopy procedure room. Patient was connected to monitoring devices. Throughout the procedure the patient's blood pressure, pulse, and oxygen saturations were monitored continuously. Patient identification and planned procedure were verified by the staff. Patient was positioned in lateral decubitus position. Digital anorectal exam was performed. Variable stiffness Olympus colonoscope was inserted and advanced under direct visualization to the cecum. Adequacy of the colonic preparation was noted. The colonoscope was advanced a short distance into the terminal ileum. The colonoscope was then slowly withdrawn while carefully examining the color, texture, anatomy, and integrity of the mucosoa circumferentially. Within the rectum retroflexion was performed. Colonoscope was then withdrawn. Impression: Colonic preparation was good. In the descending colon proximal to the anasto mosis there was a extremely tiny diminutive polyp removed with biopsy forceps. This may be hyperplastic. Anastomosis was encountered at approximately 40 cm. In the descending colon just distal to the anastomosis there was what appeared to be a prolapsing diverticulum. A biopsy was obtained to rule out adenoma. In the rectosigmoid region there were multiple tiny diminutive possible hyperplasti c polyps which were sampled with biopsy forceps. The proximal rectum there was a somewhat inflamed but likely hyperplastic polyp removed with cold snare. Patient did have some external hemorrhoids. . Findings:: External hemorrhoids Anastomosis at 40 cm Polyps as noted Probable prolapsing diverticulum, biopsied . Recommendations:: Repeat colonoscopy pending pathology. Complications:: None immediately apparent Estimated blood obtained (mL): 1 Colonoscopy Component Colonoscopy Component Was a colonoscopy performed during today's procedure?: Yes Recommended follow up colonoscopy of at least 10 years?: No If no, follow up colonoscopy recommended in ___ years?: Likely 2-3 Reason for not recommending >/= 10 yr follow-up interval?: History of colon cancer and polyps
[2025-03-17 08:00] VITALS: BP 94/48; PULSE 60; RESP 16; TEMP 36.1; O2SAT 95
[2025-03-17 08:10] VITALS: BP 96/48; PULSE 56; RESP 16; TEMP 36.1; O2SAT 94
[2025-03-17 08:20] VITALS: BP 100/55; PULSE 63; RESP 17; TEMP 36.1; O2SAT 98
[2025-03-17 08:30] VITALS: BP 104/67; PULSE 66; RESP 18; TEMP 36.1; O2SAT 99
== END 2025-03-17 08:31 | disposition home or self-care (01) ==
PROVIDERS: PCP Nurse Practitioner Family; Visit Provider Surgery
PROC: 0DJD8ZZ Inspection of Lower Intestinal Tract, Via Natural or Artificial Opening Endoscopic (ICD-10-PCS; CPT 45380; principal; 2025-03-17 07:30)
DX: K63.5 Polyp of colon (principal); K64.4 Residual hemorrhoidal skin tags; C18.9 Malignant neoplasm of colon, unspecified; C78.7 Secondary malignant neoplasm of liver and intrahepatic bile duct; I11.9 Hypertensive heart disease without heart failure; E78.5 Hyperlipidemia, unspecified; F41.9 Anxiety disorder, unspecified; K21.9 Gastro-esophageal reflux disease without esophagitis; I27.20 Pulmonary hypertension, unspecified; E89.0 Postprocedural hypothyroidism; Z87.891 Personal history of nicotine dependence; Z90.49 Acquired absence of other specified parts of digestive tract; Z79.890 Hormone replacement therapy; Z79.899 Other long term (current) drug therapy
CPT/HCPCS: 45380; 45385; J2003; J2704; J7120